=== PATIENT | male | born 1945 | race Caucasian/White ===

== ENCOUNTER 2018-08-06 20:02 | Inpatient (IN) | payer MEDICARE, MEDICAID ==
[2018-08-06 22:59] LABS: D-Dimer Test 0.69 *mcg/mL (0.27-0.43)
[2018-08-06 23:01] LABS: #Basophils 0.1 thou/uL (0.0-0.2); #Eosinphils 0.6 thou/uL (0.0-0.7); #Monocytes 1.1 thou/uL (0.11-0.59); %Basophils 0.6 % (0.0-1.0); %Eosinophils 6.2 % (0.0-10.0); %Lymphocytes 20.6 % (21.0-51.0); %Monocytes 11.1 % (0.0-10.0); %Neutrophils 61.5 % (42.0-75.0); Hemoglobin 13.8 g/dL (14.0-18.0); Mean Corpuscular HGB CONC 34.4 g/dL (32.0-36.0); Mean Corpuscular Hemoglobin 31.4 pg (27.0-31.0); Mean Corpuscular Volume 91.3 fL (78.0-98.0); Mean Platelet Volume 8.1 fL (7.4-10.4); Platelet Count 224 thou/uL (130-400); Red Blood Cell (RBC) Count 4.39 mill/uL (4.70-6.10); White Blood Cell (WBC) Count 9.7 thou/uL (4.8-10.8)
[2018-08-06 23:09] LABS: ALT (SGPT) 11 U/L (8-55); AST (SGOT) 13 U/L (5-34); Alkaline Phosphatase 65 U/L (40-150); Anion Gap 14 mmol/L (10-20); BUN (Urea Nitrogen) 26 mg/dL (8.4-25.7); Bilirubin, Total 0.6 mg/dL (0.2-1.2); Calc. Creatinine Clearance 0 mL/min (70-130); Calcium 9.5 mg/dL (7.8-10.44); Carbon Dioxide 26 mmol/L (23-31); Chloride 101 mmol/L (98-107); Estimated GFR-MDRD 52; Globulin 3.2 g/dL (2.4-3.5); Glucose 218 mg/dL (83-110); Potassium 4.4 mmol/L (3.5-5.1); Protein, Total 7.2 g/dL (5.8-8.1); Sodium 137 mmol/L (136-145)
[2018-08-06 23:35] LABS: CKMB 2.4 ng/mL (0-6.6)
--- NOTE | 2018-08-06 23:51 | ULT ---
RIGHT LOWER EXTREMITY VENOUS ULTRASOUND WITH DOPPLER 08/06/18 HISTORY: Right leg pain. Swelling. Edema. COMPARISON: None. TECHNIQUE: Olguin scale, color flow, doppler imaging with spectral waveform analysis performed of the right lower extremity venous system. FINDINGS: Examination is limited by body habitus. There is compressibility, presence of flow and augmentation i n the common femoral vein, femoral vein, popliteal vein. There is flow in the posterior tibial vein. There appears to be flow in the profunda femoral vein and greater saphenous vein. Possible occlusion of the mid and distal superficial femoral artery. IMPRESSION: 1. No evidence of thrombus in the right lower extremity deep venous system. 2. Possible occlusion in the mid to distal right superficial femoral artery. POS: [facility]
[2018-08-07] MEDS ORDERED: Guaifenesin DM 100-10/5 ML UDCUP PO PRN (00:57)
[2018-08-07] MEDS ORDERED: Ondansetron PF 4 MG/2 ML Vial IVP PRN (00:57)
[2018-08-07] MEDS ORDERED: Calcium Carbonate 500 MG ChewTAB PO PRN (00:57)
[2018-08-07] MEDS ORDERED: Ondansetron ODT 4 MG TAB PO PRN (00:57)
[2018-08-07] MEDS ORDERED: Bisacodyl 5 MG TAB PO PRN (00:57)
[2018-08-07] MEDS ORDERED: Senokot S 8.6-50 MG TAB PO PRN (00:57)
[2018-08-07] MEDS ORDERED: Acetaminophen 650 MG Suppository PR PRN (00:57)
[2018-08-07] MEDS ORDERED: Acetaminophen 325 MG TAB PO PRN (00:57)
[2018-08-07 02:03] VITALS: BMI 35.6
[2018-08-07 02:10] LABS: #Basophils 0.1 thou/uL (0.0-0.2); #Eosinphils 0.5 thou/uL (0.0-0.7); #Monocytes 1.1 thou/uL (0.11-0.59); #Neutrophils 5.9 thou/uL (1.40-6.50); %Basophils 0.9 % (0.0-1.0); %Lymphocytes 21.4 % (21.0-51.0); %Monocytes 11.1 % (0.0-10.0); %Neutrophils 61.7 % (42.0-75.0); Hemoglobin 13.7 g/dL (14.0-18.0); Mean Corpuscular HGB CONC 33.7 g/dL (32.0-36.0); Mean Corpuscular Volume 91.9 fL (78.0-98.0); Platelet Count 220 thou/uL (130-400); RBC Distribution Width 12.1 % (11.5-14.5); Red Blood Cell (RBC) Count 4.43 mill/uL (4.70-6.10); White Blood Cell (WBC) Count 9.5 thou/uL (4.8-10.8)
[2018-08-07 02:20] LABS: Troponin I 0.114 ng/mL (< 0.028)
[2018-08-07 02:40] LABS: Anion Gap 15 mmol/L (10-20); BUN (Urea Nitrogen) 25 mg/dL (8.4-25.7); BUN/Creatinine Ratio 18.25; Calc. Creatinine Clearance 83 mL/min (70-130); Calcium 9.7 mg/dL (7.8-10.44); Carbon Dioxide 27 mmol/L (23-31); Chloride 101 mmol/L (98-107); Estimated GFR-MDRD 51; Glucose 238 mg/dL (83-110); Phosphorus 3.2 mg/dL (2.3-4.7); Potassium 4.8 mmol/L (3.5-5.1); Sodium 138 mmol/L (136-145)
[2018-08-07 02:46] LABS: Troponin I 0.119 ng/mL (< 0.028)
[2018-08-07] MEDS ORDERED: Insulin Regular 300 UNITS/3 ML VIAL SC PRN (06:37)
[2018-08-07] MEDS ORDERED: Dextrose 50% Abboject 50 ML SYRINGE SLOW IVP PRN (06:37)
[2018-08-07] MEDS ORDERED: HumaLOG 300 UNITS/3 ML VIAL SC PRN ×4 (06:37→06:54)
[2018-08-07] MEDS ORDERED: Dextrose 5% in Water 1,000 ML IV PRN (06:37)
--- NOTE | 2018-08-07 07:52 | HP ---
CHIEF COMPLAINT: Lower extremity edema. HISTORY OF PRESENT ILLNESS: This is a 73-year-old male with past medical history significant for coronary artery disease, hyperlipidemia, hypertension, CVA in the past, diabetes mellitus type 2, presenting to our ED with shortness of breath and bilateral lower extremity edema. Per the patient, he has noted that he has been getting worsening lower extremity edema and the right leg is more swollen more than the left leg. The patient then became concerned, so the patient went to [facility] for evaluation and patient was transferred from [facility] to our ED, so that he can further be evaluated by getting Dopplers to rule out DVT. At this point, upon further questioning, the patient states that he has severe shortness of breath when he bends down from his wheelchair to grab things from the floor. The patient states that this shortness of breath has also been getting worse and everything has been going downhill from the past one month. Per the patient, he normally sits in his wheelchair and he does everything from his wheelchair. At this point, the patient endorses shortness of breath, bilateral lower extremity swelling; however, denies any cough, fever, chills, headaches, dizziness, chest pain, palpitations, abdominal pain, hematuria, dysuria. Of note, the patient was recently admitted to our hospital on October 24, 2017, and the patient was admitted and worked up for physical deconditioning, gait instability, peripheral vascular disease, and the patient was also found to have CVA with residual deficits during that time. REVIEW OF SYSTEMS: Positive for shortness of breath, bilateral lower extremity edema PAST MEDICAL HISTORY: Hypertension, hyperlipidemia, diabetes mellitus type 2, CVA in the past, coronary artery disease, peripheral vascular disease. FAMILY HISTORY: Reviewed and noncontributory to this visit PAST SURGICAL HISTORY: The patient has carotid endarterectomy in the past. PSYCHIATRIC HISTORY: The patient is schizophrenic. SOCIAL HISTORY: The patient is a former tobacco smoker. The patient smoked since he was in his 20s. Currently, the patient lives in a long-term facility [facility]. ALLERGIES: NO KNOWN DRUG ALLERGIES. CURRENT MEDICATIONS: The patient take; 1. Aspirin. 2. Niacin. 3. Carvedilol 6.25. 4. Clopidogrel 75 mg. 5. Vitamin B12 1000 mcg. 6. Citalopram 20 mg. 7. Glipizide 10 mg. 8. Spironolactone 25 mg. 9. Fish oil 1000 mg daily. PHYSICAL EXAMINATION: VITAL SIGNS: The patient's blood pressure is 157/81, pulse of 75, respiratory rate of 19, O2 saturation of 93% on room air. GENERAL: The patient is currently lying on his left side, sleeping comfortably, does not appear to have any acute distress. The patient is speaking in full sentences. HEENT: Normocephalic and atraumatic. Pupils are equal, round, and reactive to light. Extraocular movements are intact. No scleral icterus. Mucous membranes are moist. NECK: Full range of motion. Trachea is midline. Mild JVD appreciated. Supple. Nontender. LUNGS: The patient has mild crackles at the lower bases bilaterally. CARDIAC: Positive S1 and S2. Regular rate and rhythm. No murmurs, no gallops, no rubs appreciated. GI: The patient has positive bowel sounds, nontender, nondistended, soft. EXTREMITIES: The patient has 5/5 upper extremity strength. Good pulses bilaterally of the upper extremities. In the lower extremities, the patient has 2+ pitting edema. Right lower extremity is more edematous compared to the left. The patient has decreased pulses at the right dorsalis pedis compared to the left and there is no erythema or warmth. No sign of cellulitis appreciated at this time. NEUROLOGIC: Cranial nerves 2 through 12 grossly intact. No neurologic deficits noted. SKIN: Warm, dry, and intact. PSYCHIATRIC: Alert and oriented x3, not in acute distress. LABORATORY DATA: WBC is 9.7, hemoglobin is 13.8, hematocrit is 40.1, platelet count is 224. PT is 13.0, INR is 1.0. D-dimer is 0.69. Sodium is 137, potassium is 4.4, chloride is 101, carbon dioxide of 26, anion gap of 14, BUN is 26, creatinine is 1.33, glucose is 218. Troponin is 0.114. BNP is 336.9. IMAGING DATA: Chest x-ray shows bilateral vascular congestion that can be appreciated. ASSESSMENT AND PLAN: This is a 73-year-old male being admitted for: 1. Shortness of breath, likely due to new onset congestive heart failure. At this point, we have ordered an echo. We have consulted Cardiology. We will start the patient and continue the patient on his home medications. We will follow up with Cardiology's recommendations. We will follow up on morning labs. We will diurese the patient with Lasix. The patient takes spironolactone. We will also continue spironolactone. 2. Coronary artery disease. We will continue the patient on home medications. 3. Diabetes mellitus type 2, uncontrolled. At this time, we will start the patient on insulin sliding scale. We are going to continue the patient on his home medication. 4. Hypertension. We will monitor the patient's blood pressure closely and we will continue the patient on his home blood pressure medications and also we will add p.r.n. blood pressure medications to control the patient's blood pressures. 5. Bilateral lower extremity edema, likely due to congestive heart failure versus peripheral vascular disease. The patient does have history of peripheral vascular disease and currently DVT has been ruled out. Vascular ultrasound was done, which showed no evidence of thrombus in the right lower extremity. There is a possible occlusion in the mid to distal superficial femoral artery. 6. History of schizophrenia. At this point, the patient is stable. We will continue the patient on his current management. 7. History of cerebrovascular accident. At this point, we will continue the patient on current management. The patient is in a wheelchair and he is wheelchair bound. 8. Aortic stenosis. Cardiology has been consulted. We will follow up with their recommendation. At this point, the patient does not have any active history of syncope or dizziness. 9. Deep venous thrombosis and gastrointestinal prophylaxis. Job ID: [id number]
[2018-08-07] MEDS: Fish Oil 1,000 MG CAP PO SCH (09:42)
[2018-08-07] MEDS: Citalopram 20 MG TAB PO SCH (09:42)
[2018-08-07] MEDS: Famotidine 20 MG TAB PO SCH ×2 (09:42→20:34)
[2018-08-07] MEDS: Carvedilol 6.25 MG TAB PO SCH ×2 (09:42→20:34)
[2018-08-07] MEDS: Clopidogrel Bisulfate 75 MG TAB PO SCH (09:42)
[2018-08-07] MEDS: Spironolactone 25 MG TAB PO SCH ×2 (09:42→15:56)
[2018-08-07] MEDS: Famotidine/PF 20 mg/2ml Vial SLOW IVP SCH ×2 (09:43→20:34)
[2018-08-07] MEDS: Enoxaparin Sodium 30 MG/0.3 ML SYRINGE SC SCH (09:43)
--- NOTE | 2018-08-07 11:54 | RAD ---
CHEST 1 VIEW: HISTORY: Dyspnea. COMPARISON: 10/28/2017. FINDINGS: Cardiac silhouette is magnified by projection. Pulmonary vasculature upper limits of normal and acce ntuated by shallow inspiration. Mediastinum is midline with aortic calcification. No lobar consolid ation or evidence of pneumothorax. Postoperative changes right neck. IMPRESSION: 1. Atherosclerosis. 2. No active cardiopulmonary abnormalities are otherwise demonstrated. POS: [facility]
--- NOTE | 2018-08-07 15:12 | CON ---
DATE OF CONSULTATION: REASON FOR CONSULTATION: Lower extremity edema. HISTORY OF PRESENT ILLNESS: Mr. Lewis is a 73-year-old gentleman, who is a patient of Dr. Mendez in [facility]. He re-presented with weakness. He states he had mild shortness of breath. No chest pain, pressure, syncope, or presyncope. It was difficult to try and obtain true symptoms for Mr. Lewis. He was vague in his history. He states he was sent over by the long-term staff due to the above. He states his weakness is his main complaint and has been noted over the last 2 years. He has been wheelchair bound since that time period. He has had lower extremity edema. The duration of the lower extremity edema is unknown. The etiology is also unknown. PAST MEDICAL HISTORY: Hyperlipidemia, hypertension, diabetes mellitus, CVA, PVD, and schizophrenia. PAST SURGICAL HISTORY: Carotid endarterectomy. SOCIAL HISTORY: Previous tobacco use. CURRENT MEDICATIONS: Include; 1. Niacin. 2. Carvedilol. 3. Aspirin. 4. Clopidogrel. 5. Vitamin B12. 6. Citalopram. 7. Glipizide. 8. Spironolactone. 9. Fish oil. REVIEW OF SYSTEMS: A 10-point review of systems is reviewed and as above, otherwise negative. PHYSICAL EXAMINATION: VITAL SIGNS: Blood pressure 148/71, pulse 68, and temperature 98.5. GENERAL: Patient is a pleasant male who is in no acute distress. The patient appears their stated age. NEUROLOGIC: The patient is alert and oriented x3 with no focal neurologic deficits. HEENT: Sclerae without icterus. Mouth has moist mucous membranes with normal pallor. NECK: No JVD. Carotid upstroke brisk. No bruits bilaterally. LUNGS: Clear to auscultation with unlabored respirations. BACK: No scoliosis or kyphosis. CARDIAC: A 2/6 systolic ejection murmur heard best in the right upper sternal border. Regular rate and rhythm with normal S1 and S2. No S3 or S4 noted. No significant rubs, thrills, or gallops noted throughout the precordium. PMI is not displaced. There is no parasternal heave. ABDOMEN: Soft, nontender, nondistended. No peritoneal signs present. No hepatosplenomegaly. No abnormal striae. EXTREMITIES: 2+ pitting edema. 2+ femoral and 2+ dorsalis pedis pulses. No cyanosis or clubbing. SKIN: No gross abnormalities. PERTINENT LABS: Hemoglobin 13.7 and hematocrit 40.7. D-dimer 0.69. Creatinine 1.37 with a GFR of 51 and glucose 238. Peak troponin 0.1 and BNP of 336. Vascular ultrasound suggesting no thrombus in the right lower extremity with a possible occlusion of mid distal SFA. IMPRESSION: 1. Lower extremity edema. 2. Weakness. 3. Murmur. RECOMMENDATIONS: Mr. Lewis's echo did suggest left ventricular ejection fraction 50% to 55% with moderate left ventricular hypertrophy present. He did have diastolic dysfunction present. Contributing factors to his lower extremity edema are likely multifactorial. He does have moderate aortic stenosis in addition to left ventricular hypertrophy and diastolic dysfunction. He likely also has a component of obstructive sleep apnea. His right ventricular systolic pressure is mildly elevated. Recommendation at this point would include diuretic therapy to improve his lower extremity edema. There is no correlation between severe PVD and edema. This is likely asymptomatic. He has no current complaints to the area. Would diurese and continue with outpatient workup. The patient has no current symptoms suggesting angina. Job ID: [id number]
[2018-08-07] MEDS: Furosemide 40 MG/4 ML VIAL SLOW IVP SCH (15:56)
[2018-08-08] MEDS: Furosemide 40 MG/4 ML VIAL SLOW IVP SCH ×2 (06:39→15:35)
[2018-08-08] MEDS: Spironolactone 25 MG TAB PO SCH ×2 (08:57→17:47)
[2018-08-08] MEDS: Famotidine 20 MG TAB PO SCH ×2 (08:57→20:12)
[2018-08-08] MEDS: Fish Oil 1,000 MG CAP PO SCH (08:57)
[2018-08-08] MEDS: Carvedilol 6.25 MG TAB PO SCH ×2 (08:57→20:12)
[2018-08-08] MEDS: Citalopram 20 MG TAB PO SCH (08:57)
[2018-08-08] MEDS: Clopidogrel Bisulfate 75 MG TAB PO SCH (08:57)
[2018-08-08] MEDS: Enoxaparin Sodium 30 MG/0.3 ML SYRINGE SC SCH (08:58)
[2018-08-08] MEDS: Famotidine/PF 20 mg/2ml Vial SLOW IVP SCH ×2 (08:58→20:13)
--- NOTE | 2018-08-08 10:46 | PDOC.PN ---
- Subjective Encounter Start Date: 08/08/18 Encounter Start Time: 10:10 Subjective: f/u for LE edema on current Lasix. Weight down approx 5lbs since admit. -: No SOB, fever, cough. Feels weak and c/o general weakness. - Objective Resuscitation Status - Order Detail: 08/07/18 06:32 Resuscitation Status Routine Resuscitation Status: FULL: Full Resuscitation MAR Reviewed: Yes Vital Signs & Weight: Vital Signs (12 hours) Temp Pulse Resp BP Pulse Ox 08/08/18 07:06 97.6 F 73 20 149/84 H 94 L 08/08/18 03:50 97.5 F L 69 20 144/71 H 95 Weight Weight 270 lb 6.4 oz I&O: 08/07/18 08/08/18 08/09/18 06:59 06:59 06:59 Intake Total 0 934 Output Total 700 2850 Balance -737 -7967 Result Diagrams: 08/07/18 01:58 08/07/18 01:58 Additional Labs: Accuchecks 08/08/18 08/07/18 08/07/18 03:54 20:32 16:46 POC Glucose 201 H 228 H 214 H Laboratory Tests 10/27/17 11/03/17 08/06/18 05:00 18:30 19:43 Creatinine B-Natriuretic Peptide 251.7 H 167.0 H 336.9 H TSH 3rd Generation 08/06/18 08/08/18 22:32 08:20 Creatinine 1.33 H B-Natriuretic Peptide TSH 3rd Generation 1.9237 Radiology Reviewed by me: Yes (2D echo - EF 50-55%, mod LAE, mod MR) EKG Reviewed by me: Yes (Tele - SR) Phys Exam - Physical Examination Constitutional: NAD talkative, alert HEENT: PERRLA, sclera anicteric, oral pharynx no lesions Neck: no nodes, no JVD, supple, full ROM Respiratory: no wheezing, no rales, no rhonchi, clear to auscultation bilateral I/ CHAITANYA in RUSB, S1, S2 Cardiovascular: RRR, no rub, gallop Gastrointestinal: soft, non-tender, no distention, positive bowel sounds Musculoskeletal: pulses present, edema present Neurological: normal sensation, moves all 4 limbs Psychiatric: A&O x 3 Skin: normal turgor, cap refill <2 seconds Dx/Plan (1) Acute on chronic diastolic CHF (congestive heart failure) Code(s): I50.33 - ACUTE ON CHRONIC DIASTOLIC (CONGESTIVE) HEART FAILURE Status : Acute Comment: EF 50-55%, continue Lasix 40mg IV BID, serial monitoring (2) Physical deconditioning Code(s): R53.81 - OTHER MALAISE Status: Chronic Comment: PT for functional assessment (3) CKD (chronic kidney disease), stage II Code(s): N18.2 - CHRONIC KIDNEY DISEASE, STAGE 2 (MILD) Status: Chronic Comment: Avoid nephrotoxic agents and limit contrast exposure (4) Peripheral vascular disease Code(s): I73.9 - PERIPHERAL VASCULAR DISEASE, UNSPECIFIED Status: Chronic Comment: Continue ASA/Plavix - Plan 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
--- NOTE | 2018-08-08 12:04 | PDOC.CTH ---
Cardiology Progress Note - Subjective No overnight events. Good diuresis. - Objective Vital Signs Temp Pulse Resp BP Pulse Ox 08/08/18 11:28 97.5 F L 67 16 120/70 92 L 08/08/18 07:06 97.6 F 73 20 149/84 H 94 L 08/08/18 03:50 97.5 F L 69 20 144/71 H 95 Weight 270 lb 6.4 oz 08/07/18 08/08/18 08/09/18 06:59 06:59 06:59 Intake Total 0 934 Output Total 700 2850 Balance -700 -1020 - Physical Examination General/Neuro: other: (alert and awake) Neck: no JVD present Lungs: unlabored respirations Heart: RRR Abdomen: NT/ND - Telemetry Telemetry Rhythm: SR - Labs Result Diagrams: 08/07/18 01:58 08/07/18 01:58 Troponin/CKMB CK-MB (CK-2) 2.4 ng/mL (0-6.6) 08/06/18 19:43 Troponin I 0.119 ng/mL (< 0.028) H 08/07/18 01:58 - Assessment/Plan 1. Acute on chronic diastolic CHF 2. Mild pulmonary HTN 3. LVH 4. HTN 5. DM-II Continue diuresis and transition to po. Hopefully home soon. Pt seen and examined. Continue with diuresis. Home in 1-2 days
[2018-08-09] MEDS: Furosemide 40 MG/4 ML VIAL SLOW IVP SCH ×2 (05:31→14:25)
[2018-08-09 05:41] LABS: Anion Gap 13 mmol/L (10-20); BUN (Urea Nitrogen) 31 mg/dL (8.4-25.7); Calc. Creatinine Clearance 74 mL/min (70-130); Calcium 9.3 mg/dL (7.8-10.44); Carbon Dioxide 27 mmol/L (23-31); Chloride 100 mmol/L (98-107); Estimated GFR-MDRD 46; Glucose 215 mg/dL (83-110); Potassium 4.1 mmol/L (3.5-5.1); Sodium 136 mmol/L (136-145)
[2018-08-09] MEDS: Clopidogrel Bisulfate 75 MG TAB PO SCH (09:11)
[2018-08-09] MEDS: Carvedilol 6.25 MG TAB PO SCH ×2 (09:11→22:24)
[2018-08-09] MEDS: Fish Oil 1,000 MG CAP PO SCH (09:11)
[2018-08-09] MEDS: Citalopram 20 MG TAB PO SCH (09:11)
[2018-08-09] MEDS: Famotidine 20 MG TAB PO SCH ×2 (09:11→22:24)
[2018-08-09] MEDS: Spironolactone 25 MG TAB PO SCH ×2 (09:11→17:03)
[2018-08-09] MEDS: Enoxaparin Sodium 30 MG/0.3 ML SYRINGE SC SCH (09:11)
[2018-08-09] MEDS: Famotidine/PF 20 mg/2ml Vial SLOW IVP SCH (09:12)
[2018-08-09] MEDS: Insulin Regular 300 UNITS/3 ML VIAL SC PRN ×2 (11:35→17:28)
--- NOTE | 2018-08-09 17:27 | PDOC.PN ---
- Subjective Encounter Start Date: 08/09/18 Encounter Start Time: 17:25 Subjective: f/u for LE edema on IV Lasix. Weight down 7lbs since admit. Feels ok -: overall. - Objective Resuscitation Status - Order Detail: 08/07/18 06:32 Resuscitation Status Routine Resuscitation Status: FULL: Full Resuscitation MAR Reviewed: Yes Vital Signs & Weight: Vital Signs (12 hours) Temp Pulse Pulse Pulse Resp BP BP 08/09/18 16:38 97.6 F 82 19 08/09/18 15:33 97.5 F L 75 20 08/09/18 12:42 74 87 140/65 165/87 H 08/09/18 11:20 97.4 F L 82 20 08/09/18 07:36 97.3 F L 74 16 BP BP BP Pulse Ox Pulse Ox Pulse Ox 08/09/18 16:38 108/69 96 08/09/18 15:33 138/87 94 L 08/09/18 12:42 93 L 93 L 08/09/18 11:20 142/91 H 93 L 08/09/18 07:36 146/84 H 95 Weight Weight 270 lb 4.8 oz I&O: 08/08/18 08/09/18 08/10/18 06:59 06:59 06:59 Intake Total 934 1114 400 Output Total 9062 2575 685 [facility] -1916 -1461 -285 Result Diagrams: 08/07/18 01:58 08/09/18 05:10 Additional Labs: Accuchecks 08/09/18 08/09/18 08/09/18 16:55 11:23 05:31 POC Glucose 200 H 192 H 204 H 08/08/18 08/08/18 20:18 17:45 POC Glucose 241 H 190 H Laboratory Tests 10/27/17 11/03/17 08/06/18 05:00 18:30 19:43 Creatinine B-Natriuretic Peptide 251.7 H 167.0 H 336.9 H TSH 3rd Generation 08/06/18 08/07/18 08/08/18 22:32 01:58 08:20 Creatinine 1.33 H 1.37 H B-Natriuretic Peptide TSH 3rd Generation 1.9237 EKG Reviewed by me: Yes (Tele - SR) Phys Exam - Physical Examination Constitutional: NAD HEENT: PERRLA, sclera anicteric, oral pharynx no lesions Neck: no nodes, no JVD, supple, full ROM Respiratory: no wheezing, no rales, no rhonchi, clear to auscultation bilateral S1, S2 Cardiovascular: RRR, no significant murmur, no rub, gallop Gastrointestinal: soft, non-tender, no distention, positive bowel sounds mild LE edema Musculoskeletal: pulses present Neurological: normal sensation, moves all 4 limbs Psychiatric: A&O x 3 Skin: normal turgor, cap refill <2 seconds Dx/Plan (1) Acute on chronic diastolic CHF (congestive heart failure) Code(s): I50.33 - ACUTE ON CHRONIC DIASTOLIC (CONGESTIVE) HEART FAILURE Status : Acute Comment: EF 50-55%, continue Lasix 40mg IV BID another 24h then convert to po, serial monitoring (2) Physical deconditioning Code(s): R53.81 - OTHER MALAISE Status: Chronic Comment: PT for functional assessment (3) CKD (chronic kidney disease), stage II Code(s): N18.2 - CHRONIC KIDNEY DISEASE, STAGE 2 (MILD) Status: Chronic Comment: Avoid nephrotoxic agents and limit contrast exposure (4) Peripheral vascular disease Code(s): I73.9 - PERIPHERAL VASCULAR DISEASE, UNSPECIFIED Status: Chronic Comment: Continue ASA/Plavix - Plan plan discussed w/ family, PT/OT, [employer]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
--- NOTE | 2018-08-09 21:53 | PDOC.CTH ---
Cardiology Progress Note - Subjective Breathing better. Still with LE edema. - Objective Vital Signs Temp Pulse Pulse Pulse Resp BP BP 08/09/18 16:38 97.6 F 82 19 08/09/18 15:33 97.5 F L 75 20 08/09/18 12:42 74 87 140/65 165/87 H 08/09/18 11:20 97.4 F L 82 20 08/09/18 10:37 82 77 142/91 H 130/74 BP BP BP Pulse Ox Pulse Ox Pulse Ox 08/09/18 16:38 108/69 96 08/09/18 15:33 138/87 94 L 08/09/18 12:42 93 L 93 L 08/09/18 11:20 142/91 H 93 L 08/09/18 10:37 95 94 L Weight 270 lb 4.8 oz 08/08/18 08/09/18 08/10/18 06:59 06:59 06:59 Intake Total 934 1114 400 Output Total 2149 5619 545 Balance -3245 -7750 -285 - Physical Examination General/Neuro: alert & oriented x3, NAD Neck: no JVD present Lungs: CTA, unlabored respirations Heart: RRR Abdomen: NT/ND Extremities: + edema B (2+) - Telemetry Telemetry Rhythm: NSR - Labs Result Diagrams: 08/07/18 01:58 08/09/18 05:10 Troponin/CKMB CK-MB (CK-2) 2.4 ng/mL (0-6.6) 08/06/18 19:43 Troponin I 0.119 ng/mL (< 0.028) H 08/07/18 01:58 - Assessment/Plan 1. Acute on chronic diastolic CHF 2. Mild pulmonary HTN 3. LVH 4. HTN 5. DM-II PLAN: - Change lasix to PO. - Home tomorrow if stable.
[2018-08-10 05:57] LABS: Anion Gap 14 mmol/L (10-20); BUN (Urea Nitrogen) 39 mg/dL (8.4-25.7); Calc. Creatinine Clearance 69 mL/min (70-130); Calcium 9.3 mg/dL (7.8-10.44); Carbon Dioxide 28 mmol/L (23-31); Chloride 98 mmol/L (98-107); Estimated GFR-MDRD 43; Glucose 242 mg/dL (83-110); Potassium 3.9 mmol/L (3.5-5.1); Sodium 136 mmol/L (136-145)
[2018-08-10] MEDS ORDERED: Furosemide 40 MG TAB PO SCH (07:30)
[2018-08-10] MEDS: Clopidogrel Bisulfate 75 MG TAB PO SCH (08:17)
[2018-08-10] MEDS: Citalopram 20 MG TAB PO SCH (08:17)
[2018-08-10] MEDS: Fish Oil 1,000 MG CAP PO SCH (08:17)
[2018-08-10] MEDS: Spironolactone 25 MG TAB PO SCH (08:18)
[2018-08-10] MEDS: Famotidine 20 MG TAB PO SCH (08:18)
[2018-08-10] MEDS: Carvedilol 6.25 MG TAB PO SCH (08:18)
[2018-08-10] MEDS: Enoxaparin Sodium 30 MG/0.3 ML SYRINGE SC SCH (08:19)
[2018-08-10] MEDS: Insulin Regular 300 UNITS/3 ML VIAL SC PRN (08:19)
[2018-08-10 11:35] VITALS: TEMP 97.8
--- NOTE | 2018-08-10 14:07 | DIS ---
DATE OF ADMISSION: 08/08/2018 DATE OF DISCHARGE: 08/10/2018 DISCHARGE DIAGNOSES: 1. [id number] diastolic congestive heart failure with ejection fraction of 50% to 55%. 2. Physical deconditioning, multifactorial. 3. Chronic kidney disease stage 2, stable. 4. Peripheral vascular disease, chronic. CONSULTATIONS: Dr. Boyce and Dr. Gibbons with Cardiology Service. PERTINENT LABORATORY DATA AND X-RAY FINDINGS: Creatinine ranged between 1.33 to 1.57. Estimated GFR ranged between 43 to 52. BNP 337, previously 167, 11/03/2017. TSH 1.92. Right lower extremity venous Doppler study dated 08/06/2018, showed no evidence of thrombus in the right lower extremity deep venous system. Stenosis noted in the mid to distal right superficial femoral artery. Portable chest x-ray dated 08/06/2018, showed no acute cardiopulmonary process. 2D transthoracic echocardiogram dated 08/07/2018 showed ejection fraction of 50% to 55%. Hypokinesis of the inferior wall. Left atrial enlargement. Moderate mitral regurgitation. Moderate aortic stenosis. HOSPITAL COURSE: The patient was initially admitted to the telemetry unit after presenting with increasing lower extremity edema with evidence of [id number] diastolic heart failure. The patient underwent 2D transthoracic echocardiogram showing preserved ejection fraction of 50% to 55% with diastolic component. The patient was placed on IV Lasix with approximately 10- to 11-pound weight loss during the hospital course. The patient's overall respiratory status improved with diuresis and the patient was able to ambulate with less restriction using a rolling walker after decreasing his lower extremity edema. The patient was evaluated by the Cardiology Service with recommendations for diuretic therapy and general medical management. Telemetry monitoring showed a sinus mechanism without evidence of acute arrhythmia or dysrhythmia and patient remained clinically stable throughout the hospital course. I have examined the patient at the time of discharge and discussed followup instructions. The patient verbalizes understanding and in agreement. Due to the patient's overall deconditioned status and comorbid conditions, the patient was deemed appropriate candidate for home health services after discharge. DISCHARGE MEDICATIONS: 1. Enteric-coated aspirin 81 mg p.o. daily. 2. Coreg 6.25 mg p.o. b.i.d. 3. Citalopram 20 mg p.o. daily. 4. Plavix 75 mg p.o. daily. 5. Vitamin B12 1000 mcg p.o. daily. 6. Niacin extended release 1000 mg p.o. nightly. 7. [place]-3 fatty acids 1000 mg p.o. daily. 8. Spironolactone 25 mg p.o. b.i.d. 9. Lasix 40 mg p.o. daily. 10. Glucotrol 10 mg p.o. daily. FOLLOWUP: The patient may follow up with his primary care provider, Dr. Gay after discharge. CONDITION ON DISCHARGE: Fair. ACTIVITY: Ad-love. DIET: Heart healthy. CODE STATUS: Full. DISPOSITION: Discharged to [facility] with Home Health Services, 08/10/2018. Total time preparing and coordinating discharge, 34 minutes. Job ID: [id number]
[2018-08-10 16:42] VITALS: BP 125/81
== END 2018-08-10 16:37 | disposition home health service (06) | DRG 291 ==
LOC: ERS 20:02 → 2SW 08-07 00:29 → OBSVTOIN 08-08 10:47 → 2NO 08-09 16:37
PROVIDERS: ADMIT Internal Medicine; ATTEND Internal Medicine
DX: I13.0 Hypertensive heart and chronic kidney disease with heart failure and stage 1 through stage 4 chronic kidney disease, or unspecified chronic kidney disease (principal); I50.33 Acute on chronic diastolic (congestive) heart failure; E11.22 Type 2 diabetes mellitus with diabetic chronic kidney disease; E11.65 Type 2 diabetes mellitus with hyperglycemia; N18.2 Chronic kidney disease, stage 2 (mild); E11.51 Type 2 diabetes mellitus with diabetic peripheral angiopathy without gangrene; I27.20 Pulmonary hypertension, unspecified
CPT/HCPCS: 36415; 36416; 71045; 80048; 80053; 80069; 82553; 83880; 84443; 84484; 85025; 85379; 85610; 85730; 93005; 93306; 93798; G8978-GP-CM; G8979-GP-CK; J1650; J1815; J1940; S0028

== ENCOUNTER 2018-11-29 20:39 | Inpatient (IN) | payer MEDICARE, MEDICAID ==
[2018-11-29 22:07] LABS: CKMB 1.2 ng/mL (0-6.6)
[2018-11-30] MEDS ORDERED: Enoxaparin Sodium 30 MG/0.3 ML SYRINGE ONE (00:01)
[2018-11-30] MEDS ORDERED: Enoxaparin Sodium 100 MG/ML SYRINGE ONE (00:01)
[2018-11-30] MEDS ORDERED: Enoxaparin Sodium 120 MG/0.8 ML SYRINGE SC SCH (00:30)
[2018-11-30] MEDS ORDERED: Dextrose 50% Abboject 50 ML SYRINGE SLOW IVP PRN (02:24)
[2018-11-30] MEDS ORDERED: Dextrose 5% in Water 1,000 ML IV PRN (02:24)
[2018-11-30 02:41] LABS: Troponin I 0.087 ng/mL (< 0.028)
[2018-11-30] MEDS ORDERED: Cefepime 1 GM VIAL ONE (04:00)
[2018-11-30] MEDS: Cefepime 1 GM in Sodium Chloride 0.9% 100 ML IVPB SCH ×2 (04:09→17:09)
--- NOTE | 2018-11-30 04:09 | HP ---
CHIEF COMPLAINT: Transfer from [place] for respiratory infection and cough. HISTORY OF PRESENT ILLNESS: The patient is a 73-year-old male who initially presented to the [place] [facility] complaining of sore throat and generalized weakness. The patient also reported some cough. He reports to me now that he has had progressive weakness, especially over the last 3 days to the point that he is no longer able to get up and get on his feet and ambulate, whereas normally, he is capable of doing that. He reports cough that has been productive of discolored sputum. In the emergency department in [place], the patient appeared to have an injected pharynx with swelling and a negative chest x-ray, negative flu screen and a negative strep test; however, his white count was significantly elevated and he was febrile. He had an elevated BNP at 773 and a troponin of 0.07. White count was 17.7. The patient received a dose of IV Lasix along with vancomycin and cefepime for sepsis. He was initially transferred here after he was declined at [facility], which is where the patient had originally requested. Currently, the patient continues to have some difficulty speaking. REVIEW OF SYSTEMS: All of the systems were reviewed, all pertinent positives and negatives noted in the history of present illness. PAST MEDICAL HISTORY: Notable for: 1. Hypertension. 2. Hyperlipidemia. 3. Diabetes mellitus type 2. 4. History of CVA. 5. History of peripheral vascular disease. 6. Coronary artery disease. 7. Schizophrenia. PAST SURGICAL HISTORY: Carotid endarterectomy. FAMILY HISTORY: Nothing known that is contributory. SOCIAL HISTORY: The patient is a former smoker, but quit remotely. He lives in a long-term care facility in [place]. ALLERGIES: NONE. CURRENT MEDICATIONS: 1. Aspirin 81 mg daily. 2. Niacin 1000 mg daily. 3. Carvedilol 6.25 mg one p.o. b.i.d. 4. Clopidogrel 75 mg daily. 5. B12 1000 units daily. 6. Citalopram 20 mg daily. 7. Glipizide 10 mg daily. 8. Aldactone 25 mg b.i.d. 9. Fish oil 1000 mg p.o. daily. PHYSICAL EXAMINATION: VITAL SIGNS: BP 131/90, pulse 72, respirations 24, temperature 98.7, O2 saturation was 89% on room air. GENERAL APPEARANCE: Age-appropriate male. He is very somnolent being the middle of the night. He is easily awakened and will converse briefly, but then falls back to sleep, snoring very quickly. HEENT: FITZ, has no OP lesions. I do not appreciate a significant amount of pharyngeal erythema or engorgement. NECK: Supple and symmetric. HEART: His heart has a 2/6 high-pitched holosystolic murmur heard throughout the precordium and radiating into the abdomen. LUNGS: Diminished, but clear bilaterally with no significant wheezes or rales. ABDOMEN: Soft, nontender, and nondistended. Positive bowel sounds. No masses and no organomegaly. EXTREMITIES: No significant cyanosis, clubbing, or edema. SKIN: Warm and dry. LABORATORY DATA: White count 17.7, hemoglobin 12.8, and platelets 193. Sodium 137, potassium 4.1, chloride 99, CO2 is 26, BUN 25, creatinine 1.51, glucose 234, lactic acid 1.3, total bilirubin 1.4. LFTs normal. Troponin 0.07. BNP 772.7, albumin 3.9. Urinalysis shows glucose of 250, moderate blood, trace leukocyte esterase, 7-10 white cells, 3+ bacteria. Strep screen negative. Flu screen negative. Chest x-ray shows interstitial changes that were present in October, but appeared to be improved. EKG shows a first-degree AV block along with some nonspecific depression in inferolateral leads. IMPRESSION AND PLAN: 1. Sepsis. Source potentially the patient's pharyngitis, although it does not look all that bad to me at the moment. He also has some chronic interstitial changes on chest x-ray, which may warrant a followup CT scan and some modest evidence of urinary tract infection as well. The patient has received vancomycin and cefepime. We will continue those for now. 2. Possible evidence of congestive heart failure, primarily based upon elevated BNP. The patient did receive a dose of Lasix at the [place] [facility]. We will continue to follow up on that. He does have some hypoxia, which may be related to his chronic changes or some decompensated failure. He does have some moderate aortic stenosis along with some evidence of some diastolic dysfunction based on his previous echocardiogram from late July. 3. Chronic kidney disease stage 3. Currently, creatinine is about his baseline. 4. Elevated troponins. The patient appears to have some sepsis and hypoxia. This appears to be some demand ischemia consistent with a type 2 non-ST segment elevation myocardial infarction. We will continue the patient on telemetry and continue to monitor his enzymes. 5. Acute hypoxic respiratory failure. The patient sats at 89% on room air is requiring some supplemental oxygen here in the emergency department. Again, may need a followup CT chest to further elucidate the chronic changes that are apparent on a chest x-ray and the hypoxia. This appears to be more infectious in nature rather than a pulmonary embolus. 6. Diabetes mellitus. Continue with Accu-Cheks sliding scale and diabetic diet. 7. I am trying to have a conversation with the patient regarding his code status; however, given his degree of somnolence at the time my interview, I feel like it is best served to re-address this with him in the morning. Job ID: [id number]
[2018-11-30] MEDS ORDERED: Acetaminophen 325 MG TAB ONE ×2 (04:21→04:22)
[2018-11-30] MEDS: Acetaminophen 325 MG TAB PO PRN (04:24)
[2018-11-30 05:03] LABS: Troponin I 0.098 ng/mL (< 0.028)
[2018-11-30] MEDS ORDERED: HumaLOG 300 UNITS/3 ML VIAL ONE (07:15)
[2018-11-30] MEDS: HumaLOG 300 UNITS/3 ML VIAL SC PRN ×3 (07:17→17:20)
[2018-11-30] MEDS: Enoxaparin Sodium 40 MG/0.4 ML SYRINGE SC SCH (09:00)
[2018-11-30] MEDS ORDERED: Aspirin Chewable 81 MG TAB ONE (09:19)
[2018-11-30] MEDS ORDERED: Clopidogrel Bisulfate 75 MG TAB ONE (09:19)
[2018-11-30] MEDS: Vancomycin HCl 1 GM in Premix Bag 1 BAG IVPB SCH ×2 (09:29→19:48)
[2018-11-30] MEDS: Aspirin 81 mg Enteric Coated Tablet PO SCH (09:29)
[2018-11-30] MEDS: Clopidogrel Bisulfate 75 MG TAB PO SCH (09:29)
[2018-11-30] MEDS: Citalopram 20 MG TAB PO SCH (11:01)
[2018-11-30] MEDS: Carvedilol 6.25 MG TAB PO SCH ×2 (11:01→17:09)
[2018-11-30] MEDS: Spironolactone 25 MG TAB PO SCH ×2 (11:01→17:09)
[2018-11-30] MEDS: Niacin 500 MG TAB PO SCH (11:01)
[2018-11-30] MEDS: glipiZIDE 10 MG TAB PO SCH (11:01)
--- NOTE | 2018-11-30 19:11 | PDOC.PN ---
- Subjective Encounter Start Date: 11/30/18 Encounter Start Time: 17:40 Patient able to talk to me, does require some effort. States he generally feels weak. Unable to state if he is better/worse/same as in ED. Pain present in feet bilaterally, right>left, dorsal surface. Cough/congestion present. Incontinent of urine, he is unable to answer questions about dysuria. - Objective Resuscitation Status - Order Detail: 11/30/18 02:17 Resuscitation Status Routine Resuscitation Status: FULL: Full Resuscitation Vital Signs & Weight: Vital Signs (12 hours) Temp Pulse Resp BP BP Pulse Ox 11/30/18 17:09 129/63 11/30/18 16:53 98.4 F 89 18 129/63 98 11/30/18 14:12 96 11/30/18 13:50 98.3 F 67 18 110/56 L 96 Weight Weight 257 lb Additional Labs: Accuchecks 11/30/18 11/30/18 10:29 07:15 POC Glucose 260 H 270 H Phys Exam - Physical Examination Chronically ill appearing man No erythema posterior O/P, no LAD palpated Neck: supple some expiratory wheezes Cardiovascular: RRR RUSB murmur 2 plus Gastrointestinal: soft, non-tender, no distention Musculoskeletal: no edema Neurological: non-focal, moves all 4 limbs Psychiatric: A&O x 3 Skin: no rash Deviation from normal: Feet skin dry bilaterally, onychomycosis present, no cellulitis Dx/Plan (1) Sepsis secondary to UTI Code(s): A41.9 - SEPSIS, UNSPECIFIED ORGANISM; N39.0 - URINARY TRACT INFECTION, SITE NOT SPECIFIED Status: Acute (2) Aortic stenosis Code(s): I35.0 - NONRHEUMATIC AORTIC (VALVE) STENOSIS Status: Acute (3) HTN (hypertension) Code(s): I10 - ESSENTIAL (PRIMARY) HYPERTENSION Status: Acute (4) Diastolic dysfunction Code(s): I51.89 - OTHER ILL-DEFINED HEART DISEASES Status: Acute (5) Leukocytosis Code(s): D72.829 - ELEVATED WHITE BLOOD CELL COUNT, UNSPECIFIED Status: Acute - Plan * ID - empiric abx presently, f/u urine culture [place]. Overlay of respiratory illness as well, treat symptomatically and follow. * Check AML * Echo noted from prior admit * Pending response to therapy, may need more pulmonary diagnostics. At this point, clinical picture unclear. Start with repeat PA/Lat CXR in AM
[2018-12-01] MEDS ORDERED: Clopidogrel Bisulfate 75 MG TAB ONE (03:02)
[2018-12-01] MEDS: Cefepime 1 GM in Sodium Chloride 0.9% 100 ML IVPB SCH ×2 (03:39→17:23)
[2018-12-01 06:34] LABS: Actual Bicarbonate (HCO3a) 20.1 mEq/L (22-28); Base Excess (BEa) -5.8 mEq/L (-2.0 to +3.0); CO2 Tension 41.2 mmHg (35.0-45.0); Calcium, Ionized 1.26 mmol/L (1.12-1.30); Carboxyhemoglobin (COHb) 1.7 gm% (0.0-3.0); Hemoglobin (Hb) 13.4 g/dL (14.0-18.0); O2 Tension (PaO2) 69.5 mmHg (> 70.0); Potassium - ABG Lab 4.16 mmol/L (3.70-5.30); pH, Arterial 7.31 (7.35-7.45)
[2018-12-01 06:35] LABS: Puncture Site RRA
--- NOTE | 2018-12-01 06:47 | PDOC.EVN ---
Event Note - Event Note Event Note: Code green activated due to pt having some change in mental status, as per RN report, pt was arousal but seems to be confused, not in acute distress, vitals signs WNL, no fever, CT ordered will follow, could just be due to undelrying infection, ABG acceptable, will continue to watch him and follow work up. Discussed with hospitalist colleague for continuation of care in am.
[2018-12-01 06:56] LABS: Mean Corpuscular HGB CONC 31.9 g/dL (32.0-36.0); Mean Corpuscular Hemoglobin 30.3 pg (27.0-31.0); Mean Corpuscular Volume 94.9 fL (78.0-98.0); Mean Platelet Volume 8.8 fL (7.4-10.4); Platelet Count 231 thou/uL (130-400); RBC Distribution Width 11.7 % (11.5-14.5); White Blood Cell (WBC) Count 20.2 thou/uL (4.8-10.8)
[2018-12-01 07:24] LABS: Anion Gap 21 mmol/L (10-20); BUN (Urea Nitrogen) 41 mg/dL (8.4-25.7); Calc. Creatinine Clearance 59 mL/min (70-130); Calcium 10.1 mg/dL (7.8-10.44); Carbon Dioxide 20 mmol/L (23-31); Chloride 99 mmol/L (98-107); Estimated GFR-MDRD 38; Glucose 282 mg/dL (83-110); Potassium 4.1 mmol/L (3.5-5.1); Sodium 136 mmol/L (136-145)
--- NOTE | 2018-12-01 08:08 | CT ---
CT OF HEAD NONCONTRAST: INDICATION: Altered mental status. COMPARISON: 07/01/2016. FINDINGS: There is parenchymal volume loss with compensatory dilatation of the ventricular system. Mild chroni c ischemic disease is present. There is no intracranial hemorrhage, mass effect, or midline shift. IMPRESSION: No evidence of acute intracranial hemorrhage or mass effect. POS: [facility]
[2018-12-01 08:29] LABS: CKMB 16.3 ng/mL (0-6.6); Troponin I 1.088 ng/mL (< 0.028)
[2018-12-01 08:38] LABS: Band 15 % (5-11); Eosinophils 1 % (0-10); Lymphocytes 18 % (21-51); MDiff Complete? YES; Monocytes 6 % (0-10); Neutrophil 59 % (42-75); RBC Morphology Normal; Reactive Lymphocytes 1 % (0-10)
[2018-12-01] MEDS: Carvedilol 6.25 MG TAB PO SCH ×2 (09:00→17:23)
[2018-12-01] MEDS: Enoxaparin Sodium 40 MG/0.4 ML SYRINGE SC SCH (09:01)
[2018-12-01] MEDS: Niacin 500 MG TAB PO SCH (09:01)
[2018-12-01] MEDS: Aspirin 81 mg Enteric Coated Tablet PO SCH (09:01)
[2018-12-01] MEDS: Spironolactone 25 MG TAB PO SCH ×2 (09:01→17:23)
[2018-12-01] MEDS: Citalopram 20 MG TAB PO SCH (09:01)
[2018-12-01] MEDS: Clopidogrel Bisulfate 75 MG TAB PO SCH (09:01)
[2018-12-01] MEDS: glipiZIDE 10 MG TAB PO SCH (09:01)
--- NOTE | 2018-12-01 09:16 | RAD ---
TWO VIEW CHEST: Indications: Cough and respiratory symptoms, hospital follow up. Comparison: 11-29-18 FINDINGS: Hazy alveolar infiltrate in the right upper lung again noted. There is mild cardiomegaly. There is va scular congestion with interstitial prominence suggesting interstitial congestion. Small effusions ag ain noted. IMPRESSION: Evidence of vascular congestion with possible superimposed infiltrate in the right upper lung. Findin gs appear stable from yesterday. POS: [facility]
[2018-12-01] MEDS ORDERED: Vancomycin HCl 1.5 GM in Sodium Chloride 0.9% 250 ML 300 ML IVPB SCH (10:00)
[2018-12-01] MEDS: Vancomycin HCl 1 GM in Premix Bag 1 BAG IVPB SCH (10:16)
--- NOTE | 2018-12-01 11:48 | PDOC.PN ---
- Subjective Encounter Start Date: 12/01/18 Encounter Start Time: 08:30 Follow up sepsis. Patient seen early this morning, overnight events noted. Will awaken to stimulation, knows he is in hospital in [place], knows "November 2018 ". Denies pain presently. - Objective Resuscitation Status - Order Detail: 11/30/18 02:17 Resuscitation Status Routine Resuscitation Status: FULL: Full Resuscitation Vital Signs & Weight: Vital Signs (12 hours) Temp Pulse Pulse Resp Resp BP BP 12/01/18 08:00 97.2 F L 95 17 115/70 12/01/18 06:28 117 H 20 129/78 12/01/18 03:40 97.8 F 104 H 18 123/71 Pulse Ox Pulse Ox 12/01/18 08:00 99 12/01/18 06:28 95 12/01/18 03:40 95 Weight Weight 252 lb 6.4 oz I&O: 11/30/18 12/01/18 12/02/18 06:59 06:59 06:59 Intake Total 560 Output Total 200 Balance 360 Result Diagrams: 12/01/18 06:37 12/01/18 06:37 Additional Labs: Accuchecks 12/01/18 12/01/18 11/30/18 10:47 05:41 19:47 POC Glucose 303 H 235 H 161 H Phys Exam - Physical Examination Chronically ill appearing HEENT: PERRLA Neck: no nodes, no JVD scattered rales Cardiovascular: RRR Gastrointestinal: soft, non-tender Musculoskeletal: no edema Neurological: non-focal, moves all 4 limbs some mild residual dysphagia from prior CVAs Deviation from normal: oriented to person/place/month Skin: no rash Dx/Plan (1) Aortic stenosis Code(s): I35.0 - NONRHEUMATIC AORTIC (VALVE) STENOSIS Status: Acute (2) HTN (hypertension) Code(s): I10 - ESSENTIAL (PRIMARY) HYPERTENSION Status: Acute (3) Diastolic dysfunction Code(s): I51.89 - OTHER ILL-DEFINED HEART DISEASES Status: Acute (4) Leukocytosis Code(s): D72.829 - ELEVATED WHITE BLOOD CELL COUNT, UNSPECIFIED Status: Acute (5) Sepsis Code(s): A41.9 - SEPSIS, UNSPECIFIED ORGANISM Status: Acute - Plan * Called daughter Ave, reviewed history, she asked me to call brother Tony also, which I did. Met in person with Tony and patient's brother, family meeting approximately 30 minutes, information summarized below. I explained overnight events/workup/care plan in detail and answered their questions. * * Pulm - Repeat CXR reviewed, hazy infiltrate RUL, interstitial prominance present. With negative urine culture and blood cultures, suspect atypical pneumonia. Will stop vancomycin and use levaquin/cefepime for now. Lasix 40mg IV today. Tomorrow resume home Lasix 40 mg po bid. * Suspect underlying MOSHE, son also has suspected this, they are awaiting outpt sleep study. Start CPAP qhs/with naps. * * Cards- --> admitted SW early December, diastolic CHF, received heart cath Dr. Sierra, sustained embolic CVA, no stent placed--> recommended repeat cath, referral to AVR or TAVR. Patient to follow up Cardiology on this issue. I explained this is likely complicating fluid issues. * New cardiac biomarkers overnight ARE consistent with NSTEMI type 2 secondary to demand ischemia secondary to sepsis. * * ID - Throat/Blood/Urine negative so far. Abnormal UA on admit noted, however. Clinical picture c/w respiratory illness in patient that is already frail. AM CBC ordered, abx as above. Procalcitonin 0.14. * * DVT proph - Lovenox * * Functional status - wheelchair bound, since early November not able to independently transfer bed to chair. PT/OT, would need SNF at d/c (previously in October was in Assisted Living, more recently at SNF) * * Code status - Patient has expressed desire for DNR compatible care with family in the past. They recall those conversations, we agreed that functional outcome for him after a code would be dismal. Functional capacity already very limited. DNR order placed. Son needs formal POA papers, SW consult placed.
[2018-12-01] MEDS ORDERED: Furosemide 40 MG/4 ML VIAL SLOW IVP SCH (12:00)
[2018-12-01] MEDS: HumaLOG 300 UNITS/3 ML VIAL SC PRN (12:01)
--- NOTE | 2018-12-01 13:24 | PDOC.CTH ---
Cardiology Progress Note - Subjective No changes noted. - Objective Vital Signs Temp Pulse Pulse Resp Resp BP BP 12/01/18 08:00 97.2 F L 95 17 115/70 12/01/18 06:28 117 H 20 129/78 12/01/18 03:40 97.8 F 104 H 18 123/71 Pulse Ox Pulse Ox 12/01/18 08:00 99 12/01/18 06:28 95 12/01/18 03:40 95 Weight 252 lb 6.4 oz 11/30/18 12/01/18 12/02/18 06:59 06:59 06:59 Intake Total 560 Output Total 200 Balance 360 - Physical Examination General/Neuro: NAD Neck: no JVD present Lungs: unlabored respirations Heart: PMI normal, RRR Abdomen: NT/ND, soft Extremities: + femoral B - Labs Result Diagrams: 12/01/18 06:37 12/01/18 06:37 Troponin/CKMB CK-MB (CK-2) 16.3 ng/mL (0-6.6) H* 12/01/18 06:37 Troponin I 1.088 ng/mL (< 0.028) H* 12/01/18 06:37 - Assessment/Plan Type II SD Sepsis atypical pneumonia Obtain records from [facility] conservative treatment Recent increase in troponin likely related to type 2 SD Abx Long discussion with the son. Pt preparing for TAVR and underwent angio 3 months ago. Was told he had a lesion that needed stenting prior to TAVR. During procedure, pt had a cva. Pt has subsequently had two admissions (total of three) in the last 2 months for CHF. At this point, I do not recommend angio. Recommend conservative treatment given recent infection. Pt also reluctant to undergo cath given recent CVA. I discussed hospice with family if pt decided to not undergo TAVR. They will think about it
--- NOTE | 2018-12-01 14:02 | CON ---
DATE OF CONSULTATION: 11/30/2018 REASON FOR CONSULTATION: Shortness of breath and elevated troponin. HISTORY OF PRESENT ILLNESS: Mr. Lewis is a 73-year-old gentleman, patient of Dr. Gonzalez at [facility]. He recently presented with shortness of breath and cough and respiratory infection. His daughter who is with him states he has had subjective fevers. transfer patient. His troponin was minimally elevated. White blood cell count was markedly elevated at 17,000 with elevated BNP of 773. Current notes from [facility] are pending. PAST MEDICAL HISTORY: Hypertension, hyperlipidemia, diabetes mellitus, CVA, PVD, schizophrenia, aortic stenosis, carotid endarterectomy. SOCIAL HISTORY: Previous tobacco abuse. HOME MEDICATIONS: Include: 1. Vitamin B12. 2. Plavix. 3. Aspirin. 4. Carvedilol. 5. Niacin. 6. Glipizide. 7. Spironolactone. 8. Fish oil. REVIEW OF SYSTEMS: A 10-point review of systems is reviewed as above, otherwise negative. PHYSICAL EXAMINATION: GENERAL: Patient is a pleasant male, who is in no acute distress. The patient appears their stated age. VITAL SIGNS: Blood pressure 110/60, pulse 84, and temperature 97.6. NEUROLOGIC: The patient is alert and oriented x3 with no focal neurologic deficits. HEENT: Sclerae without icterus. Mouth has moist mucous membranes with normal pallor. NECK: No JVD. Carotid upstroke brisk. No bruits bilaterally. LUNGS: Clear to auscultation with unlabored respirations. BACK: No scoliosis or kyphosis. CARDIAC: Regular rate and rhythm with normal S1 and S2. No S3 or S4 noted. No significant rubs, murmurs, thrills, or gallops noted throughout the precordium. PMI is not displaced. There is no parasternal heave. ABDOMEN: Soft, nontender, nondistended. No peritoneal signs present. No hepatosplenomegaly. No abnormal striae. EXTREMITIES: 2+ femoral and 2+ dorsalis pedis pulses. No cyanosis, clubbing, or edema. SKIN: No gross abnormalities. PERTINENT LABORATORY DATA: Creatinine 1.51. Peak troponin 0.1. EKG shows normal sinus rhythm, ST wave changes suggesting LVH. When compared to previous EKG from 3 months ago, no significant changes present. IMPRESSION: 1. Shortness of breath. 2. Pneumonia. 3. Schizophrenia. 4. Elevated troponin. 5. Abnormal EKG. RECOMMENDATION: I would like to obtain previous records from Dr. Gonzalez at [facility]. There may be recent angio based on vague history from the family. This would certainly be helpful moving forward. His troponin is type 2 MA, not type 1. We will continue covering with antibiotic therapy and trend troponin levels. Job ID: [id number]
[2018-12-01] MEDS: Acetaminophen 325 MG TAB PO PRN (15:06)
[2018-12-01] MEDS: HYDROcodone/Acetaminophen 5/325 mg Tablet PO PRN (20:18)
[2018-12-02] MEDS: HYDROcodone/Acetaminophen 5/325 mg Tablet PO PRN ×3 (00:14→23:40)
[2018-12-02] MEDS: Cefepime 1 GM in Sodium Chloride 0.9% 100 ML IVPB SCH ×2 (04:51→16:20)
[2018-12-02 05:25] LABS: Anion Gap 16 mmol/L (10-20); BUN (Urea Nitrogen) 43 mg/dL (8.4-25.7); Calc. Creatinine Clearance 63 mL/min (70-130); Calcium 9.8 mg/dL (7.8-10.44); Carbon Dioxide 27 mmol/L (23-31); Chloride 100 mmol/L (98-107); Estimated GFR-MDRD 41; Glucose 204 mg/dL (83-110); Sodium 139 mmol/L (136-145)
[2018-12-02 05:38] LABS: Band 5 % (5-11); Hemoglobin 11.7 g/dL (14.0-18.0); Hypochromia SLIGHT = 6-15 cells (100X) (0-5/hpf); Lymphocytes 9 % (21-51); MDiff Complete? YES; Mean Corpuscular HGB CONC 33.6 g/dL (32.0-36.0); Mean Corpuscular Hemoglobin 31.4 pg (27.0-31.0); Mean Corpuscular Volume 93.3 fL (78.0-98.0); Mean Platelet Volume 8.7 fL (7.4-10.4); Monocytes 9 % (0-10); Neutrophil 77 % (42-75); Platelet Count 206 thou/uL (130-400); Platelet Morphology Comment Appears Adequate; RBC Distribution Width 11.6 % (11.5-14.5); Red Blood Cell (RBC) Count 3.72 mill/uL (4.70-6.10); White Blood Cell (WBC) Count 14.2 thou/uL (4.8-10.8)
--- NOTE | 2018-12-02 07:09 | PDOC.CTH ---
Cardiology Progress Note - Subjective No changes noted. - Objective Vital Signs Temp Pulse Resp BP Pulse Ox 12/02/18 03:14 97.8 F 107 H 140/93 H 94 L 12/01/18 19:15 97.9 F 90 16 108/53 L 95 Weight 250 lb 9.6 oz 12/01/18 12/02/18 12/03/18 06:59 06:59 06:59 Intake Total 560 1330 Output Total 200 Balance 360 1330 - Physical Examination General/Neuro: NAD Neck: no JVD present Lungs: CTA, unlabored respirations Heart: PMI normal Abdomen: no HSM, NT/ND, soft Extremities: + femoral B - Telemetry Telemetry Rhythm: sr - Labs Result Diagrams: 12/02/18 04:21 12/02/18 04:21 Troponin/CKMB CK-MB (CK-2) 16.3 ng/mL (0-6.6) H* 12/01/18 06:37 Troponin I 1.088 ng/mL (< 0.028) H* 12/01/18 06:37 - Assessment/Plan Type II TX Sepsis atypical pneumonia REC: 4.25 Please see previous note. Recnet echo with severe Plan is to treat with antibiotics and fu at to complete CV workup No further recommendations. Please reconsult if needed.
[2018-12-02] MEDS: Aspirin 81 mg Enteric Coated Tablet PO SCH (09:00)
[2018-12-02] MEDS: Citalopram 20 MG TAB PO SCH (09:00)
[2018-12-02] MEDS: Clopidogrel Bisulfate 75 MG TAB PO SCH (09:00)
[2018-12-02] MEDS: Spironolactone 25 MG TAB PO SCH ×2 (09:00→17:30)
[2018-12-02] MEDS: glipiZIDE 10 MG TAB PO SCH (09:00)
[2018-12-02] MEDS: Niacin 500 MG TAB PO SCH (09:00)
[2018-12-02] MEDS: Carvedilol 6.25 MG TAB PO SCH ×2 (09:00→17:30)
[2018-12-02] MEDS: Enoxaparin Sodium 40 MG/0.4 ML SYRINGE SC SCH (09:01)
[2018-12-02] MEDS: Furosemide 40 MG TAB PO SCH (13:39)
[2018-12-02] MEDS: HumaLOG 300 UNITS/3 ML VIAL SC PRN (13:39)
--- NOTE | 2018-12-02 15:15 | PDOC.PN ---
- Subjective Encounter Start Date: 12/02/18 Encounter Start Time: 15:13 Subjective: feels a little better.was able to work with PT.sat at the side of bed -: still very weak .but no CP/SOB/abd pain/N/V/D - Objective Resuscitation Status - Order Detail: 12/01/18 11:52 Resuscitation Status Routine Resuscitation Status: DNAR: NO Resuscitation Discussed with: Son Tony, Brother GIO Reviewed: Yes Vital Signs & Weight: Vital Signs (12 hours) Temp Pulse Pulse Pulse Resp BP BP 12/02/18 12:00 98.1 F 81 17 12/02/18 10:23 94 82 131/73 109/55 L 12/02/18 10:22 94 82 131/73 109/55 L 12/02/18 08:00 96.5 F L 79 18 12/02/18 03:14 97.8 F 107 H BP Pulse Ox Pulse Ox Pulse Ox 12/02/18 12:00 122/68 96 12/02/18 10:23 91 L 91 L 12/02/18 10:22 91 L 84 L 12/02/18 08:00 118/64 94 L 12/02/18 03:14 140/93 H 94 L Weight Weight 250 lb 9.6 oz I&O: 12/01/18 12/02/18 12/03/18 06:59 06:59 06:59 Intake Total 560 1330 Output Total 200 Balance 360 1330 Result Diagrams: 12/02/18 04:21 12/02/18 04:21 Additional Labs: Accuchecks 12/02/18 12/02/18 12/01/18 11:09 05:18 19:48 POC Glucose 278 H 215 H 183 H 12/01/18 11/30/18 06:30 16:22 POC Glucose 257 H 182 H Microbiology 11/29/18 15:48 Throat - Pending Group A Streptococcus Culture - Final 11/29/18 15:26 Throat - Pending Group A Streptococcus Screen (JUSTYN) - Final 11/29/18 15:26 Nasal swab Influenza Types A,B Direct EIA - Final 11/29/18 15:55 Venous blood - Left Arm Blood Culture - Preliminary NO GROWTH AT 48 HOURS 11/29/18 15:25 Urine Straight Catheter Urine Culture - Preliminary Gram Variable Riley 11/29/18 15:12 Venous blood - Right Arm Blood Culture - Preliminary NO GROWTH AT 48 HOURS Laboratory Tests 10/30/18 11/29/18 11/29/18 17:07 15:14 21:15 WBC Band Neuts % (Manual) Creatinine 1.78 H 1.51 H Troponin I 0.101 H 11/30/18 11/30/18 12/01/18 02:10 04:30 06:37 WBC Band Neuts % (Manual) Creatinine 1.76 H Troponin I 0.087 H 0.098 H 12/01/18 12/01/18 12/02/18 06:37 06:37 04:21 WBC 20.2 H Band Neuts % (Manual) 15 H Creatinine 1.64 H Troponin I 1.088 H* 12/02/18 04:21 WBC 14.2 H Band Neuts % (Manual) 5 Creatinine Troponin I Phys Exam - Physical Examination Constitutional: NAD chronically ill looking HEENT: PERRLA, moist MMs, sclera anicteric, oral pharynx no lesions Neck: no nodes, no JVD, supple, full ROM Respiratory: no wheezing, no rales, no rhonchi, clear to auscultation bilateral Cardiovascular: RRR, no significant murmur Gastrointestinal: soft, non-tender, no distention, positive bowel sounds Musculoskeletal: no edema, pulses present Neurological: non-focal, normal sensation, moves all 4 limbs able to move all 4 ext against gravity Psychiatric: normal affect, A&O x 3 Skin: no rash Dx/Plan (1) Sepsis Code(s): A41.9 - SEPSIS, UNSPECIFIED ORGANISM Status: Acute Comment: Cx negative so far. on empiric ABx. Monitor. Improving (2) Type 2 myocardial infarction Code(s): I21.A1 - MYOCARDIAL INFARCTION TYPE 2 Status: Acute Comment: likley due to demand ischemia from Sepsis (3) PNA (pneumonia) Code(s): J18.9 - PNEUMONIA, UNSPECIFIED ORGANISM Status: Acute Qualifiers: Aspiration pneumonia type: unspecified Comment: on empiric IV ABx. follow Cx results. will get employee relations representative eval to r/o aspiration .recent CVA (4) Leukocytosis Code(s): D72.829 - ELEVATED WHITE BLOOD CELL COUNT, UNSPECIFIED Status: Acute Comment: improving. check in am (5) Aortic stenosis Code(s): I35.0 - NONRHEUMATIC AORTIC (VALVE) STENOSIS Status: Chronic (6) HTN (hypertension) Code(s): I10 - ESSENTIAL (PRIMARY) HYPERTENSION Status: Chronic (7) CKD (chronic kidney disease), stage II Code(s): N18.2 - CHRONIC KIDNEY DISEASE, STAGE 2 (MILD) Status: Chronic Comment: Avoid nephrotoxic agents and limit contrast exposure.stable (8) Peripheral vascular disease Code(s): I73.9 - PERIPHERAL VASCULAR DISEASE, UNSPECIFIED Status: Chronic Comment: Continue ASA/Plavix (9) Physical deconditioning Code(s): R53.81 - OTHER MALAISE Status: Chronic Comment: PT for functional assessment (10) CAD (coronary artery disease) Code(s): I25.10 - ATHSCL HEART DISEASE OF [place] CORONARY ARTERY W/O ANG PCTRS Status: Chronic Comment: Recent OP Cath. cont home meds ASA, plavix,Coreg, lasix and aldactone - Plan continue antibiotics, PT/OT, respiratory therapy, incentive spirometry, out of bed/ambulate, DVT proph w/SCDs supportive care. 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 -: Follow cardiology recs -: increase activity and Po intake -: am labs * . Review of Systems - Review of Systems Constitutional: weakness, malaise. negative: fever, chills, sweats, other Respiratory: Cough, Dry, SOB with Excertion. negative: Shortness of Breath, Hemoptysis, Pleuritic Pain, Sputum, Wheezing Cardiovascular: negative: chest pain, palpitations, orthopnea, paroxysmal nocturnal dyspnea, edema, light headedness, other Gastrointestinal: negative: Nausea, Vomiting, Abdominal Pain, Diarrhea, Constipation, Melena, Hematochezia, Other Genitourinary: negative: Dysuria, Frequency, Incontinence, Hematuria, Retention , Other Musculoskeletal: negative: Neck Pain, Shoulder Pain, Arm Pain, Back Pain, Hand Pain, Leg Pain, Foot Pain, Other Neurological: negative: Weakness, Numbness, Incoordination, Change in Speech, Confusion, Seizures, Other - Medications/Allergies Allergies/Adverse Reactions: Allergies Allergy/AdvReac Type Severity Reaction Status Date / Time No Known Allergies Allergy Verified 08/07/18 02:11 Medications: Current Medications Acetaminophen (Tylenol) 650 mg PO Q4H PRN PRN Reason: Headache/Fever/Mild Pain (1-3) Last Admin: 12/01/18 15:06 Dose: 650 mg Hydrocodone Bitart/Acetaminophen ([place] 5/325) 1 tab PO Q4H PRN PRN Reason: Moderate Pain (4-6) Last Admin: 12/01/18 20:18 Dose: 1 tab Hydrocodone Bitart/Acetaminophen ([place] 5/325) 2 tab PO Q4H PRN PRN Reason: Severe Pain (7-10) Last Admin: 12/02/18 04:51 Dose: 2 tab Aspirin (Ecotrin) 81 mg PO DAILY [facility] Last Admin: 12/02/18 09:00 Dose: 81 mg Carvedilol (Coreg) 6.25 mg PO BID-[facility] Last Admin: 12/02/18 09:00 Dose: 6.25 mg Citalopram Hydrobromide (Celexa) 20 mg PO DAILY [facility] Last Admin: 12/02/18 09:00 Dose: 20 mg Clopidogrel Bisulfate (Plavix) 75 mg PO DAILY [facility] Last Admin: 12/02/18 09:00 Dose: 75 mg Dextrose/Water (Dextrose 50%) 25 gm SLOW IVP PRN PRN PRN Reason: Hypoglycemia Enoxaparin Sodium (Lovenox) 40 mg SC 0900 [facility] Last Admin: 12/02/18 09:01 Dose: 40 mg Furosemide (Lasix) 40 mg PO 0900,1400 [facility] Last Admin: 12/02/18 13:39 Dose: 40 mg Glipizide (Glucotrol) 10 mg PO DAILY-[facility] Last Admin: 12/02/18 09:00 Dose: 10 mg Glucagon (Glucagon) 1 mg IM PRN PRN PRN Reason: Hypoglycemia Cefepime HCl 1 gm/ Sodium (Chloride) 100 mls @ 200 mls/hr IVPB 0400,1600 [facility] Last Admin: 12/02/18 04:51 Dose: 100 mls Dextrose/Water (D5w) 1,000 mls @ 0 mls/hr IV .Q0M PRN PRN Reason: Hypoglycemia Levofloxacin 750 mg/ Device 150 mls @ 100 mls/hr IVPB Q24HR [facility] Last Admin: 12/02/18 13:39 Dose: 150 mls Insulin Human Lispro (Humalog) 0 units SC .MILD SLIDING SCALE PRN PRN Reason: Mild Correctional Scale Last Admin: 12/02/18 13:39 Dose: 4 units Niacin (Niacin) 1,000 mg PO DAILY [facility] Last Admin: 12/02/18 09:00 Dose: 1,000 mg Sodium Chloride (Flush - Normal Saline) 10 ml IVF Q12HR [facility] Last Admin: 12/02/18 09:00 Dose: 10 ml Sodium Chloride (Flush - Normal Saline) 10 ml IVF PRN PRN PRN Reason: Saline Flush Spironolactone (Aldactone) 25 mg PO BID-[facility] Last Admin: 12/02/18 09:00 Dose: 25 mg
[2018-12-02 18:50] LABS: Analyzer IN Cardio OR; Base Excess (BEa) -3.8 mEq/L (-2.0 to +3.0); CO2 Tension 37.5 mmHg (35.0-45.0); Calcium, Ionized 1.22 mmol/L (1.12-1.30); Carboxyhemoglobin (COHb) 1.7 gm% (0.0-3.0); Hemoglobin (Hb) 12.9 g/dL (14.0-18.0); Potassium - ABG Lab 3.86 mmol/L (3.70-5.30); pH, Arterial 7.37 (7.35-7.45)
[2018-12-02 18:51] LABS: O2 Tension (PaO2) 49.5 mmHg (> 70.0); Puncture Site RBRACH
[2018-12-03] MEDS: Cefepime 1 GM in Sodium Chloride 0.9% 100 ML IVPB SCH (04:45)
[2018-12-03] MEDS: HYDROcodone/Acetaminophen 5/325 mg Tablet PO PRN ×2 (04:45→17:58)
[2018-12-03 06:55] LABS: #Eosinphils 0.4 thou/uL (0.0-0.7); #Lymphocytes 1.5 thou/uL (1.20-3.40); #Monocytes 1.3 thou/uL (0.11-0.59); #Neutrophils 8.4 thou/uL (1.40-6.50); %Basophils 0.2 % (0.0-1.0); %Eosinophils 3.8 % (0.0-10.0); %Lymphocytes 12.6 % (21.0-51.0); %Monocytes 11.2 % (0.0-10.0); %Neutrophils 72.2 % (42.0-75.0); Hemoglobin 10.7 g/dL (14.0-18.0); Mean Corpuscular HGB CONC 33.8 g/dL (32.0-36.0); Mean Corpuscular Hemoglobin 31.6 pg (27.0-31.0); Mean Corpuscular Volume 93.4 fL (78.0-98.0); Platelet Count 213 thou/uL (130-400); RBC Distribution Width 11.6 % (11.5-14.5); White Blood Cell (WBC) Count 11.6 thou/uL (4.8-10.8)
--- NOTE | 2018-12-03 07:10 | EKG ---
Test Reason : Blood Pressure : / mmHG Vent. Rate : 105 BPM Atrial Rate : 105 BPM P-R Int : 320 ms QRS Dur : 096 ms QT Int : 354 ms P-R-T Axes : 012 007 127 degrees QTc Int : 467 ms Sinus tachycardia with 1st degree A-V block Left ventricular hypertrophy with repolarization abnormality Marked ST abnormality, possible anterior subendocardial injury Abnormal ECG When compared with ECG of 07-AUG-2018 00:58, Vent. rate has increased BY [address] now depressed in Anterior leads T wave inversion no longer evident in Inferior leads Confirmed by MORGAN FAIRCHILD ([id number]) on 12/03/2018 7:10:11 AM Referred By: PAUL Confirmed By:MORGAN FAIRCHILD
[2018-12-03 07:24] LABS: Anion Gap 15 mmol/L (10-20); BUN (Urea Nitrogen) 40 mg/dL (8.4-25.7); Calc. Creatinine Clearance 65 mL/min (70-130); Calcium 9.5 mg/dL (7.8-10.44); Carbon Dioxide 26 mmol/L (23-31); Chloride 99 mmol/L (98-107); Estimated GFR-MDRD 44; Glucose 198 mg/dL (83-110); Potassium 3.8 mmol/L (3.5-5.1); Sodium 136 mmol/L (136-145)
[2018-12-03 07:52] LABS: CKMB 13.6 ng/mL (0-6.6)
[2018-12-03] MEDS: glipiZIDE 10 MG TAB PO SCH (08:30)
[2018-12-03] MEDS: Carvedilol 6.25 MG TAB PO SCH ×2 (08:45→16:44)
[2018-12-03] MEDS: Aspirin 81 mg Enteric Coated Tablet PO SCH (08:46)
[2018-12-03] MEDS: Clopidogrel Bisulfate 75 MG TAB PO SCH (08:46)
[2018-12-03] MEDS: Enoxaparin Sodium 40 MG/0.4 ML SYRINGE SC SCH (08:46)
[2018-12-03] MEDS: Citalopram 20 MG TAB PO SCH (08:46)
[2018-12-03] MEDS: Niacin 500 MG TAB PO SCH (08:46)
[2018-12-03] MEDS: Spironolactone 25 MG TAB PO SCH ×2 (08:49→16:44)
[2018-12-03] MEDS: Furosemide 40 MG TAB PO SCH ×2 (11:00→14:25)
--- NOTE | 2018-12-03 11:35 | PDOC.PN ---
- Subjective Encounter Start Date: 12/03/18 Encounter Start Time: 11:32 Subjective: admitted with cough productive of sputum, sorethroat and weakness -: Found to have fever, leucocytosis and elevated troponin. -: Feeling better today. - Objective Resuscitation Status - Order Detail: 12/01/18 11:52 Resuscitation Status Routine Resuscitation Status: DNAR: NO Resuscitation Discussed with: Son Tony Brother Vital Signs & Weight: Vital Signs (12 hours) Temp Pulse Resp BP Pulse Ox 12/03/18 08:29 98.1 F 88 18 132/58 L 100 12/03/18 04:00 97.8 F 97 20 134/65 94 L Weight Weight 249 lb 8 oz I&O: 12/02/18 12/03/18 12/04/18 06:59 06:59 06:59 Intake Total 1330 1150 Balance 1330 1150 Result Diagrams: 12/03/18 06:38 12/03/18 06:38 Additional Labs: Accuchecks 12/03/18 12/03/18 12/02/18 11:17 06:01 21:08 POC Glucose 211 H 208 H 228 H 12/02/18 12/02/18 18:27 17:00 POC Glucose 222 H 185 H Phys Exam - Physical Examination obese HEENT: moist MMs Neck: no JVD Respiratory: no wheezing, no rhonchi fair air entry bilaterally with some transmitted sound. Cardiovascular: RRR systolic murmur noted Gastrointestinal: soft, non-tender, no distention, positive bowel sounds Musculoskeletal: no edema awake and conversational. Moving all limbs Psychiatric: A&O x 3 Dx/Plan (1) Acute respiratory failure with hypoxia Code(s): J96.01 - ACUTE RESPIRATORY FAILURE WITH HYPOXIA Status: Acute (2) CKD (chronic kidney disease) stage 3, GFR 30-59 ml/min Code(s): N18.3 - CHRONIC KIDNEY DISEASE, STAGE 3 (MODERATE) Status: Acute (3) Dysphagia causing pulmonary aspiration with swallowing Code(s): R13.19 - OTHER DYSPHAGIA Status: Acute (4) PNA (pneumonia) Code(s): J18.9 - PNEUMONIA, UNSPECIFIED ORGANISM Status: Acute Qualifiers: Aspiration pneumonia type: unspecified Comment: on empiric IV ABx. follow Cx results. will get dental sales representative eval to r/o aspiration .recent CVA (5) Sepsis Code(s): A41.9 - SEPSIS, UNSPECIFIED ORGANISM Status: Acute Comment: Cx negative so far. on empiric ABx. Monitor. Improving (6) Type 2 myocardial infarction Code(s): I21.A1 - MYOCARDIAL INFARCTION TYPE 2 Status: Acute Comment: likley due to demand ischemia from Sepsis (7) Aortic stenosis Code(s): I35.0 - NONRHEUMATIC AORTIC (VALVE) STENOSIS Status: Chronic (8) CAD (coronary artery disease) Code(s): I25.10 - ATHSCL HEART DISEASE OF [place] CORONARY ARTERY W/O ANG PCTRS Status: Chronic Comment: Recent OP Cath. cont home meds ASA, plavix,Coreg, lasix and aldactone (9) HTN (hypertension) Code(s): I10 - ESSENTIAL (PRIMARY) HYPERTENSION Status: Chronic (10) Peripheral vascular disease Code(s): I73.9 - PERIPHERAL VASCULAR DISEASE, UNSPECIFIED Status: Chronic Comment: Continue ASA/Plavix (11) Physical deconditioning Code(s): R53.81 - OTHER MALAISE Status: Chronic Comment: PT for functional assessment - Plan DC IV levaquin and cefepime and start oral augmentin and doxycycline -: Trend troponin -: Get rehab screening for possible inpatit rehab. -: Monitor renal function with diuretic therapy. 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
[2018-12-03] MEDS: HumaLOG 300 UNITS/3 ML VIAL SC PRN ×2 (12:03→17:59)
[2018-12-03] MEDS ORDERED: Amoxicillin/Potassium Clav 875 MG TAB PO SCH (12:15)
[2018-12-03] MEDS ORDERED: Doxycycline 100 MG CAP PO SCH (12:15)
[2018-12-03 13:51] LABS: Troponin I 4.582 ng/mL (< 0.028)
[2018-12-03] MEDS: Amoxicillin/Potassium Clav 875 MG TAB PO SCH (21:34)
[2018-12-03] MEDS: Doxycycline 100 MG CAP PO SCH (21:34)
[2018-12-04] MEDS: HYDROcodone/Acetaminophen 5/325 mg Tablet PO PRN ×3 (01:10→20:34)
[2018-12-04 05:29] LABS: #Basophils 0.1 thou/uL (0.0-0.2); #Eosinphils 0.9 thou/uL (0.0-0.7); #Lymphocytes 1.7 thou/uL (1.20-3.40); #Monocytes 1.4 thou/uL (0.11-0.59); #Neutrophils 8.2 thou/uL (1.40-6.50); %Basophils 0.6 % (0.0-1.0); %Eosinophils 7.6 % (0.0-10.0); %Lymphocytes 13.6 % (21.0-51.0); %Monocytes 11.4 % (0.0-10.0); %Neutrophils 66.8 % (42.0-75.0); Hemoglobin 11.1 g/dL (14.0-18.0); Mean Corpuscular HGB CONC 33.6 g/dL (32.0-36.0); Mean Corpuscular Hemoglobin 31.4 pg (27.0-31.0); Mean Corpuscular Volume 93.6 fL (78.0-98.0); Mean Platelet Volume 7.9 fL (7.4-10.4); Platelet Count 234 thou/uL (130-400); RBC Distribution Width 11.6 % (11.5-14.5); Red Blood Cell (RBC) Count 3.52 mill/uL (4.70-6.10); White Blood Cell (WBC) Count 12.3 thou/uL (4.8-10.8)
[2018-12-04 05:52] LABS: Anion Gap 14 mmol/L (10-20); BUN (Urea Nitrogen) 37 mg/dL (8.4-25.7); Calc. Creatinine Clearance 68 mL/min (70-130); Calcium 9.8 mg/dL (7.8-10.44); Carbon Dioxide 29 mmol/L (23-31); Chloride 98 mmol/L (98-107); Estimated GFR-MDRD 45; Glucose 170 mg/dL (83-110); Potassium 3.5 mmol/L (3.5-5.1); Sodium 137 mmol/L (136-145)
[2018-12-04] MEDS: Spironolactone 25 MG TAB PO SCH ×2 (08:01→16:54)
[2018-12-04] MEDS: Carvedilol 6.25 MG TAB PO SCH ×2 (08:01→16:54)
[2018-12-04] MEDS: glipiZIDE 10 MG TAB PO SCH (08:01)
[2018-12-04] MEDS: Clopidogrel Bisulfate 75 MG TAB PO SCH (08:03)
[2018-12-04] MEDS: Enoxaparin Sodium 40 MG/0.4 ML SYRINGE SC SCH (08:03)
[2018-12-04] MEDS: Aspirin 81 mg Enteric Coated Tablet PO SCH (08:03)
[2018-12-04] MEDS: Citalopram 20 MG TAB PO SCH (08:03)
[2018-12-04] MEDS: Niacin 500 MG TAB PO SCH (08:04)
[2018-12-04] MEDS: Furosemide 40 MG TAB PO SCH ×2 (10:14→14:15)
[2018-12-04] MEDS: Doxycycline 100 MG CAP PO SCH ×2 (10:14→20:33)
[2018-12-04] MEDS: Amoxicillin/Potassium Clav 875 MG TAB PO SCH ×2 (10:15→20:33)
[2018-12-04] MEDS: HumaLOG 300 UNITS/3 ML VIAL SC PRN ×2 (12:31→17:11)
--- NOTE | 2018-12-04 17:02 | PDOC.PN ---
- Subjective Encounter Start Date: 12/04/18 Encounter Start Time: 08:20 Pt seen for followup re: acute hypoxic respiratory failure. Feels better. - Objective Resuscitation Status - Order Detail: 12/01/18 11:52 Resuscitation Status Routine Resuscitation Status: DNAR: NO Resuscitation Discussed with: Son Tony, Brother GIO Reviewed: Yes Vital Signs & Weight: Vital Signs (12 hours) Temp Pulse Resp BP Pulse Ox 12/04/18 16:50 97.7 F 77 18 109/59 L 95 12/04/18 12:15 97.9 F 84 18 122/72 95 12/04/18 07:53 97.9 F 74 18 107/72 97 12/04/18 05:06 92 L Weight Weight 250 lb 9.6 oz I&O: 12/03/18 12/04/18 12/05/18 06:59 06:59 06:59 Intake Total 1150 1590 Balance 1150 1590 Result Diagrams: 12/04/18 05:05 12/04/18 05:05 Additional Labs: Accuchecks 12/04/18 12/04/18 12/04/18 16:47 11:18 05:37 POC Glucose 177 H 157 H 173 H 12/04/18 12/03/18 12/03/18 02:38 20:28 17:03 POC Glucose 180 H 177 H 166 H EKG Reviewed by me: Yes (Tele: NSR) Phys Exam - Physical Examination Constitutional: NAD HEENT: moist MMs Neck: supple Respiratory: clear to auscultation bilateral Cardiovascular: RRR Gastrointestinal: soft Neurological: moves all 4 limbs Psychiatric: normal affect Dx/Plan (1) Acute respiratory failure with hypoxia Code(s): J96.01 - ACUTE RESPIRATORY FAILURE WITH HYPOXIA Status: Acute Comment: Improving (2) PNA (pneumonia) Code(s): J18.9 - PNEUMONIA, UNSPECIFIED ORGANISM Status: Acute Qualifiers: Aspiration pneumonia type: unspecified Comment: on oral antibiotics (3) Type 2 myocardial infarction Code(s): I21.A1 - MYOCARDIAL INFARCTION TYPE 2 Status: Acute Comment: stable (4) CKD (chronic kidney disease) stage 3, GFR 30-59 ml/min Code(s): N18.3 - CHRONIC KIDNEY DISEASE, STAGE 3 (MODERATE) Status: Chronic Comment: stable - Plan * . Review of Systems - Review of Systems Respiratory: Cough, Sputum. negative: Dry, Shortness of Breath, Hemoptysis, SOB with Excertion, Pleuritic Pain, Wheezing Cardiovascular: negative: chest pain, palpitations, orthopnea, paroxysmal nocturnal dyspnea, edema, light headedness - Medications/Allergies Allergies/Adverse Reactions: Allergies Allergy/AdvReac Type Severity Reaction Status Date / Time No Known Allergies Allergy Verified 08/07/18 02:11 Medications: Current Medications Acetaminophen (Tylenol) 650 mg PO Q4H PRN PRN Reason: Headache/Fever/Mild Pain (1-3) Last Admin: 12/01/18 15:06 Dose: 650 mg Hydrocodone Bitart/Acetaminophen ([place] 5/325) 1 tab PO Q4H PRN PRN Reason: Moderate Pain (4-6) Last Admin: 12/04/18 12:31 Dose: 1 tab Hydrocodone Bitart/Acetaminophen ([place] 5/325) 2 tab PO Q4H PRN PRN Reason: Severe Pain (7-10) Last Admin: 12/04/18 01:10 Dose: 2 tab Amoxicillin/Clavulanate Potassium (Augmentin) 875 mg PO Q12HR [facility] Last Admin: 12/04/18 10:15 Dose: 875 mg Aspirin (Ecotrin) 81 mg PO DAILY [facility] Last Admin: 12/04/18 08:03 Dose: 81 mg Carvedilol (Coreg) 6.25 mg PO BID-[facility] Last Admin: 12/04/18 16:54 Dose: 6.25 mg Citalopram Hydrobromide (Celexa) 20 mg PO DAILY [facility] Last Admin: 12/04/18 08:03 Dose: 20 mg Clopidogrel Bisulfate (Plavix) 75 mg PO DAILY [facility] Last Admin: 12/04/18 08:03 Dose: 75 mg Dextrose/Water (Dextrose 50%) 25 gm SLOW IVP PRN PRN PRN Reason: Hypoglycemia Doxycycline Hyclate (Vibramycin) 100 mg PO BID [facility] Last Admin: 12/04/18 10:14 Dose: 100 mg Enoxaparin Sodium (Lovenox) 40 mg SC 0900 [facility] Last Admin: 12/04/18 08:03 Dose: 40 mg Furosemide (Lasix) 40 mg PO 0900,1400 [facility] Last Admin: 12/04/18 14:15 Dose: 40 mg Glipizide (Glucotrol) 10 mg PO DAILY-[facility] Last Admin: 12/04/18 08:01 Dose: 10 mg Glucagon (Glucagon) 1 mg IM PRN PRN PRN Reason: Hypoglycemia Dextrose/Water (D5w) 1,000 mls @ 0 mls/hr IV .Q0M PRN PRN Reason: Hypoglycemia Insulin Human Lispro (Humalog) 0 units SC .MILD SLIDING SCALE PRN PRN Reason: Mild Correctional Scale Last Admin: 12/04/18 12:31 Dose: 2 units Niacin (Niacin) 1,000 mg PO DAILY [facility] Last Admin: 12/04/18 08:04 Dose: 1,000 mg Sodium Chloride (Flush - Normal Saline) 10 ml IVF Q12HR [facility] Last Admin: 12/04/18 10:15 Dose: Not Given Sodium Chloride (Flush - Normal Saline) 10 ml IVF PRN PRN PRN Reason: Saline Flush Spironolactone (Aldactone) 25 mg PO BID-[facility] Last Admin: 12/04/18 16:54 Dose: 25 mg
[2018-12-05] MEDS: Spironolactone 25 MG TAB PO SCH ×2 (08:01→16:27)
[2018-12-05] MEDS: glipiZIDE 10 MG TAB PO SCH (08:01)
[2018-12-05] MEDS: Carvedilol 6.25 MG TAB PO SCH ×2 (08:01→16:27)
[2018-12-05] MEDS: Aspirin 81 mg Enteric Coated Tablet PO SCH (08:01)
[2018-12-05] MEDS: Amoxicillin/Potassium Clav 875 MG TAB PO SCH ×2 (08:01→20:57)
[2018-12-05] MEDS: Citalopram 20 MG TAB PO SCH (08:02)
[2018-12-05] MEDS: Doxycycline 100 MG CAP PO SCH ×2 (08:02→20:57)
[2018-12-05] MEDS: Niacin 500 MG TAB PO SCH (08:02)
[2018-12-05] MEDS: Furosemide 40 MG TAB PO SCH ×2 (08:02→15:00)
[2018-12-05] MEDS: Clopidogrel Bisulfate 75 MG TAB PO SCH (08:02)
[2018-12-05] MEDS: Enoxaparin Sodium 40 MG/0.4 ML SYRINGE SC SCH (08:02)
--- NOTE | 2018-12-05 08:05 | PDOC.PN ---
- Subjective Encounter Start Date: 12/05/18 Encounter Start Time: 08:03 Subjective: Feeling better. -: Still requiring oxygen at nights dueto desaturation while asleep -: Deniedcough, SOb, or fever. - Objective Resuscitation Status - Order Detail: 12/01/18 11:52 Resuscitation Status Routine Resuscitation Status: DNAR: NO Resuscitation Discussed with: Son Tony, Brother Vital Signs & Weight: Vital Signs (12 hours) Temp Pulse Resp BP Pulse Ox 12/05/18 07:46 97.7 F 77 18 124/61 94 L 12/05/18 04:00 97.9 F 74 18 109/69 93 L 12/04/18 20:20 98 Weight Weight 251 lb 1.6 oz I&O: 12/04/18 12/05/18 12/06/18 06:59 06:59 06:59 Intake Total 1590 1280 Balance 1590 1280 Result Diagrams: 12/04/18 05:05 12/04/18 05:05 Additional Labs: Accuchecks 12/05/18 12/05/18 12/04/18 05:18 02:11 20:21 POC Glucose 182 H 202 H 167 H 12/04/18 12/04/18 16:47 11:18 POC Glucose 177 H 157 H Phys Exam - Physical Examination Constitutional: NAD HEENT: moist MMs Neck: no JVD, supple Respiratory: no wheezing, no rhonchi fair air entry bilaterally with transmitted sound Cardiovascular: RRR 3-4/6 systolicmurmur noted Gastrointestinal: soft, non-tender, no distention, positive bowel sounds Musculoskeletal: no edema, pulses present Neurological: non-focal awake and conversational. moving all limbs Psychiatric: A&O x 3 Dx/Plan (1) Acute respiratory failure with hypoxia Code(s): J96.01 - ACUTE RESPIRATORY FAILURE WITH HYPOXIA Status: Acute Comment: Improved. Now on oxygen at nights (2) CKD (chronic kidney disease) stage 3, GFR 30-59 ml/min Code(s): N18.3 - CHRONIC KIDNEY DISEASE, STAGE 3 (MODERATE) Status: Chronic Comment: stable (3) Dysphagia causing pulmonary aspiration with swallowing Code(s): R13.19 - OTHER DYSPHAGIA Status: Acute (4) PNA (pneumonia) Code(s): J18.9 - PNEUMONIA, UNSPECIFIED ORGANISM Status: Acute Qualifiers: Aspiration pneumonia type: unspecified Comment: on oral antibiotics (5) Sepsis Code(s): A41.9 - SEPSIS, UNSPECIFIED ORGANISM Status: Acute Comment: Cx negative so far. on empiric ABx. Monitor. Improving (6) Type 2 myocardial infarction Code(s): I21.A1 - MYOCARDIAL INFARCTION TYPE 2 Status: Acute Comment: stable (7) Aortic stenosis Code(s): I35.0 - NONRHEUMATIC AORTIC (VALVE) STENOSIS Status: Chronic (8) CAD (coronary artery disease) Code(s): I25.10 - ATHSCL HEART DISEASE OF [place] CORONARY ARTERY W/O ANG PCTRS Status: Chronic Comment: Recent OP Cath. cont home meds ASA, plavix,Coreg, lasix and aldactone (9) HTN (hypertension) Code(s): I10 - ESSENTIAL (PRIMARY) HYPERTENSION Status: Chronic Comment: Controlled (10) Peripheral vascular disease Code(s): I73.9 - PERIPHERAL VASCULAR DISEASE, UNSPECIFIED Status: Chronic Comment: Continue ASA/Plavix (11) Physical deconditioning Code(s): R53.81 - OTHER MALAISE Status: Chronic Comment: PT for functional assessment (12) MOSHE (obstructive sleep apnea) Code(s): G47.33 - OBSTRUCTIVE SLEEP APNEA (ADULT) (PEDIATRIC) Status: Acute Comment: Suspected due to nocturnal desatiration - Plan Continue current antibiotics anddiuretics. -: Recheck CBC and BMP in the am -: Possible discharge back to SNF tomorrow. * .
--- NOTE | 2018-12-05 13:59 | EKG ---
Test Reason : STAT Blood Pressure : / mmHG Vent. Rate : 110 BPM Atrial Rate : 113 BPM P-R Int : 292 ms QRS Dur : 096 ms QT Int : 372 ms P-R-T Axes : -04 -04 145 degrees QTc Int : 503 ms Sinus tachycardia with 1st degree A-V block Left ventricular hypertrophy with repolarization abnormality Marked ST abnormality, possible anterior subendocardial injury Abnormal ECG When compared with ECG of 01-DEC-2018 07:31, No significant change was found Confirmed by MORGAN FAIRCHILD ([id number]) on 12/05/2018 1:59:37 PM Referred By: SIMONE Confirmed By:MORGAN FAIRCHILD
[2018-12-05] MEDS ORDERED: Ondansetron ODT 4 MG TAB PO PRN (14:01)
[2018-12-05] MEDS ORDERED: Bisacodyl 10 MG SUPP PR PRN (14:02)
[2018-12-05] MEDS ORDERED: Polyethylene Glycol 3350 17 GM Packet PO PRN ×2 (14:02→19:30)
[2018-12-06] MEDS: Acetaminophen 325 MG TAB PO PRN (02:54)
[2018-12-06 06:59] LABS: #Basophils 0.1 thou/uL (0.0-0.2); #Eosinphils 0.4 thou/uL (0.0-0.7); #Lymphocytes 1.4 thou/uL (1.20-3.40); #Monocytes 1.3 thou/uL (0.11-0.59); #Neutrophils 14.1 thou/uL (1.40-6.50); %Basophils 0.5 % (0.0-1.0); %Eosinophils 2.2 % (0.0-10.0); %Lymphocytes 8.3 % (21.0-51.0); %Monocytes 7.6 % (0.0-10.0); %Neutrophils 81.4 % (42.0-75.0); Hemoglobin 12.2 g/dL (14.0-18.0); Mean Corpuscular HGB CONC 32.3 g/dL (32.0-36.0); Mean Corpuscular Hemoglobin 30.7 pg (27.0-31.0); Mean Platelet Volume 9.1 fL (7.4-10.4); Platelet Count 257 thou/uL (130-400); RBC Distribution Width 11.9 % (11.5-14.5); Red Blood Cell (RBC) Count 3.99 mill/uL (4.70-6.10); White Blood Cell (WBC) Count 17.3 thou/uL (4.8-10.8)
[2018-12-06 07:24] LABS: Anion Gap 22 mmol/L (10-20); BUN (Urea Nitrogen) 37 mg/dL (8.4-25.7); Calc. Creatinine Clearance 55 mL/min (70-130); Calcium 9.7 mg/dL (7.8-10.44); Carbon Dioxide 21 mmol/L (23-31); Chloride 95 mmol/L (98-107); Estimated GFR-MDRD 36; Glucose 215 mg/dL (83-110); Potassium 4.9 mmol/L (3.5-5.1); Sodium 133 mmol/L (136-145)
[2018-12-06] MEDS: Carvedilol 6.25 MG TAB PO SCH ×3 (08:56→21:07)
[2018-12-06] MEDS: glipiZIDE 10 MG TAB PO SCH (08:56)
[2018-12-06] MEDS: Enoxaparin Sodium 40 MG/0.4 ML SYRINGE SC SCH (08:57)
[2018-12-06] MEDS: Aspirin 81 mg Enteric Coated Tablet PO SCH (08:57)
[2018-12-06] MEDS: Citalopram 20 MG TAB PO SCH (08:57)
[2018-12-06] MEDS: Amoxicillin/Potassium Clav 875 MG TAB PO SCH ×2 (08:57→21:08)
[2018-12-06] MEDS: Doxycycline 100 MG CAP PO SCH ×2 (08:57→21:08)
[2018-12-06] MEDS: Spironolactone 25 MG TAB PO SCH ×2 (08:57→16:33)
[2018-12-06] MEDS: Clopidogrel Bisulfate 75 MG TAB PO SCH (08:57)
[2018-12-06] MEDS: Furosemide 40 MG TAB PO SCH (08:59)
[2018-12-06] MEDS: Niacin 500 MG TAB PO SCH (08:59)
--- NOTE | 2018-12-06 10:41 | PDOC.PN ---
- Subjective Encounter Start Date: 12/06/18 Encounter Start Time: 10:39 Subjective: Nursing staff reported difficulty in waking patient. -: He also had SPO2 in low 80's requiring commencement of oxygen supplement -: SPO2 improved when patient finally woke up. He denied any complaint when up - Objective Resuscitation Status - Order Detail: 12/01/18 11:52 Resuscitation Status Routine Resuscitation Status: DNAR: NO Resuscitation Discussed with: Son Tony Brother Vital Signs & Weight: Vital Signs (12 hours) Temp Pulse Resp BP Pulse Ox 12/06/18 08:46 97.9 F 102 H 20 110/65 96 12/06/18 03:50 97.8 F 113 H 15 106/71 93 L Weight Weight 245 lb 14.4 oz I&O: 12/05/18 12/06/18 12/07/18 06:59 06:59 06:59 Intake Total 1280 1170 Balance 1280 1170 Result Diagrams: 12/06/18 06:31 12/06/18 06:31 Additional Labs: Accuchecks 12/06/18 12/05/18 12/05/18 05:27 20:25 16:41 POC Glucose 225 H 213 H 172 H 12/05/18 10:57 POC Glucose 214 H Phys Exam - Physical Examination Constitutional: NAD afebrile, no distress HEENT: moist MMs Neck: supple fair air entry with bilateral crackles especially right base. Cardiovascular: RRR Gastrointestinal: soft, non-tender, no distention, positive bowel sounds Musculoskeletal: no edema, pulses present awake and conversational. Moves all limbs but lower limbs weakly Psychiatric: A&O x 3 Dx/Plan (1) Acute respiratory failure with hypoxia Code(s): J96.01 - ACUTE RESPIRATORY FAILURE WITH HYPOXIA Status: Acute Comment: Improved. Had low Spo2 and was started on oxygen this am. (2) CKD (chronic kidney disease) stage 3, GFR 30-59 ml/min Code(s): N18.3 - CHRONIC KIDNEY DISEASE, STAGE 3 (MODERATE) Status: Chronic Comment: stable (3) Dysphagia causing pulmonary aspiration with swallowing Code(s): R13.19 - OTHER DYSPHAGIA Status: Acute (4) PNA (pneumonia) Code(s): J18.9 - PNEUMONIA, UNSPECIFIED ORGANISM Status: Acute Qualifiers: Aspiration pneumonia type: unspecified Comment: on oral antibiotics (5) Sepsis Code(s): A41.9 - SEPSIS, UNSPECIFIED ORGANISM Status: Acute Comment: Cx negative so far. on empiric ABx. Monitor. Improving (6) Type 2 myocardial infarction Code(s): I21.A1 - MYOCARDIAL INFARCTION TYPE 2 Status: Acute Comment: stable (7) Aortic stenosis Code(s): I35.0 - NONRHEUMATIC AORTIC (VALVE) STENOSIS Status: Chronic (8) CAD (coronary artery disease) Code(s): I25.10 - ATHSCL HEART DISEASE OF [place] CORONARY ARTERY W/O ANG PCTRS Status: Chronic Comment: Recent OP Cath. cont home meds ASA, plavix,Coreg, lasix and aldactone (9) HTN (hypertension) Code(s): I10 - ESSENTIAL (PRIMARY) HYPERTENSION Status: Chronic Comment: Controlled (10) Peripheral vascular disease Code(s): I73.9 - PERIPHERAL VASCULAR DISEASE, UNSPECIFIED Status: Chronic Comment: Continue ASA/Plavix (11) Physical deconditioning Code(s): R53.81 - OTHER MALAISE Status: Chronic Comment: PT for functional assessment (12) MOSHE (obstructive sleep apnea) Code(s): G47.33 - OBSTRUCTIVE SLEEP APNEA (ADULT) (PEDIATRIC) Status: Acute Comment: Suspected due to nocturnal desatiration - Plan Given new onset tachycardia, hypoxia and worsening tachycardia, aspiration is a concern We will get repeat CXR. We will also get MBS. case discussed with patient daughter at bedside, Nursing staff and speech therapist. We will also decrease lasix dose given increase in creat. We willre evaluate patient when ordered test are available. Continue oxygen supplementation as needed. * .
--- NOTE | 2018-12-06 12:49 | RAD ---
TWO VIEW CHEST: INDICATION: Leukocytosis. Shortness of breath. Hospital followup. COMPARISON: 12/01/2018. FINDINGS: Cardiomegaly. Mild vascular congestion and interstitial prominence. Hazy alveolar opacity in the ri ght upper lung again noted suggesting asymmetric edema or infiltrate. Evidence of small bilateral ef fusions. IMPRESSION: The above chest findings have not significantly changed when compared to 12/01/2018. POS: [facility]
--- NOTE | 2018-12-06 14:43 | RAD ---
MODIFIED BARIUM SWALLOW: HISTORY: Dysphagia, R13.10. Feeding difficulties, R63.3. TECHNIQUE/FINDINGS: Various consistencies of barium sulfate were given to the patient. The patient had large gulps. The patient was asked repeatedly to take smaller swallows; however, each time he was allowed to swallow freely, he took large gulps, which resulted in some minimal flash penetration. When the patient had smaller gulps and nectar thick liquid was used, no evidence of aspi ration or penetration seen. This also improved with patient having a chin tuck position during the swallowing process. IMPRESSION: Patient had a tendency to have some flash penetration with large gulps of thin liquid. This resolved, however, with smaller gulps being ingested as well as thickening of the liquid. Other consistencies of ingested barium did not result in aspiration. Transcribed Date/Time: 12/06/2018 3:05 PM
[2018-12-06] MEDS ORDERED: Sodium Chloride 0.9% 500 ML IV SCH (14:45)
[2018-12-07 09:33] LABS: #Eosinphils 0.5 thou/uL (0.0-0.7); #Lymphocytes 1.5 thou/uL (1.20-3.40); #Monocytes 1.3 thou/uL (0.11-0.59); #Neutrophils 11.3 thou/uL (1.40-6.50); %Basophils 0.3 % (0.0-1.0); %Eosinophils 3.3 % (0.0-10.0); %Lymphocytes 10.2 % (21.0-51.0); %Monocytes 8.9 % (0.0-10.0); %Neutrophils 77.4 % (42.0-75.0); Hemoglobin 11.9 g/dL (14.0-18.0); Mean Corpuscular Volume 93.9 fL (78.0-98.0); Mean Platelet Volume 7.5 fL (7.4-10.4); Platelet Count 306 thou/uL (130-400); RBC Distribution Width 11.8 % (11.5-14.5); Red Blood Cell (RBC) Count 3.85 mill/uL (4.70-6.10); White Blood Cell (WBC) Count 14.6 thou/uL (4.8-10.8)
[2018-12-07 09:57] LABS: Anion Gap 17 mmol/L (10-20); BUN (Urea Nitrogen) 43 mg/dL (8.4-25.7); Calc. Creatinine Clearance 60 mL/min (70-130); Calcium 9.6 mg/dL (7.8-10.44); Carbon Dioxide 27 mmol/L (23-31); Chloride 98 mmol/L (98-107); Estimated GFR-MDRD 40; Glucose 217 mg/dL (83-110); Potassium 4.2 mmol/L (3.5-5.1); Sodium 138 mmol/L (136-145)
[2018-12-07] MEDS: Furosemide 40 MG TAB PO SCH (10:03)
[2018-12-07] MEDS: Citalopram 20 MG TAB PO SCH (10:03)
[2018-12-07] MEDS: Carvedilol 6.25 MG TAB PO SCH ×2 (10:04→21:02)
[2018-12-07] MEDS: Amoxicillin/Potassium Clav 875 MG TAB PO SCH ×2 (10:04→21:02)
[2018-12-07] MEDS: Niacin 500 MG TAB PO SCH (10:04)
[2018-12-07] MEDS: Doxycycline 100 MG CAP PO SCH ×2 (10:22→21:02)
[2018-12-07] MEDS: Spironolactone 25 MG TAB PO SCH ×2 (10:22→17:00)
[2018-12-07] MEDS: Aspirin 81 mg Enteric Coated Tablet PO SCH ×2 (10:23→10:24)
[2018-12-07] MEDS: Enoxaparin Sodium 40 MG/0.4 ML SYRINGE SC SCH (10:23)
[2018-12-07] MEDS: Clopidogrel Bisulfate 75 MG TAB PO SCH (10:23)
[2018-12-07] MEDS ORDERED: Aspirin Chewable 81 MG TAB PO SCH (10:30)
[2018-12-07] MEDS: glipiZIDE 10 MG TAB PO SCH (10:43)
--- NOTE | 2018-12-07 18:08 | PDOC.PN ---
- Subjective Encounter Start Date: 12/07/18 Encounter Start Time: 18:06 Subjective: Seen and examined. -: Feeling better. -: Still requiring oxygen. Hypotension resolbved with NS 500 mls bolus. - Objective Resuscitation Status - Order Detail: 12/01/18 11:52 Resuscitation Status Routine Resuscitation Status: DNAR: NO Resuscitation Discussed with: Son Tony Brother Vital Signs & Weight: Vital Signs (12 hours) Temp Pulse Pulse Pulse Resp BP BP 12/07/18 16:00 97.5 F L 99 18 12/07/18 12:00 98 F 91 16 12/07/18 09:15 95 95 124/80 109/61 12/07/18 08:00 12/07/18 07:58 98.4 F 98 18 BP Pulse Ox Pulse Ox Pulse Ox 12/07/18 16:00 109/64 95 12/07/18 12:00 114/71 96 12/07/18 09:15 96 94 L 12/07/18 08:00 96 12/07/18 07:58 107/75 98 Weight Weight 246 lb I&O: 12/06/18 12/07/18 12/08/18 06:59 06:59 06:59 Intake Total 1170 1320 Balance 1170 1320 Result Diagrams: 12/07/18 09:25 12/07/18 09:25 Additional Labs: Accuchecks 12/07/18 12/07/18 12/07/18 17:27 11:25 05:30 POC Glucose 207 H 227 H 237 H 12/06/18 20:34 POC Glucose 218 H Phys Exam - Physical Examination Constitutional: NAD afebrile HEENT: moist MMs Neck: no JVD, supple fair air entry with some transmitted sound. Cardiovascular: RRR Gastrointestinal: soft, non-tender, no distention, positive bowel sounds Musculoskeletal: no edema, pulses present conscious and alert. Moving all lims. Power of lower limbs are decreased Psychiatric: A&O x 3 Dx/Plan (1) Acute respiratory failure with hypoxia Code(s): J96.01 - ACUTE RESPIRATORY FAILURE WITH HYPOXIA Status: Acute Comment: Still on oxygen. Was weaned earler but developed acute distress thought to related to aspiration. (2) CKD (chronic kidney disease) stage 3, GFR 30-59 ml/min Code(s): N18.3 - CHRONIC KIDNEY DISEASE, STAGE 3 (MODERATE) Status: Chronic Comment: stable (3) Dysphagia causing pulmonary aspiration with swallowing Code(s): R13.19 - OTHER DYSPHAGIA Status: Acute (4) PNA (pneumonia) Code(s): J18.9 - PNEUMONIA, UNSPECIFIED ORGANISM Status: Acute Qualifiers: Aspiration pneumonia type: unspecified Comment: on oral antibiotics (5) Sepsis Code(s): A41.9 - SEPSIS, UNSPECIFIED ORGANISM Status: Acute Comment: Cx negative so far. on empiric ABx. Monitor. Improving (6) Type 2 myocardial infarction Code(s): I21.A1 - MYOCARDIAL INFARCTION TYPE 2 Status: Acute Comment: stable (7) Aortic stenosis Code(s): I35.0 - NONRHEUMATIC AORTIC (VALVE) STENOSIS Status: Chronic (8) CAD (coronary artery disease) Code(s): I25.10 - ATHSCL HEART DISEASE OF [place] CORONARY ARTERY W/O ANG PCTRS Status: Chronic Comment: Recent OP Cath. cont home meds ASA, plavix,Coreg, lasix and aldactone (9) HTN (hypertension) Code(s): I10 - ESSENTIAL (PRIMARY) HYPERTENSION Status: Chronic Comment: Controlled (10) Peripheral vascular disease Code(s): I73.9 - PERIPHERAL VASCULAR DISEASE, UNSPECIFIED Status: Chronic Comment: Continue ASA/Plavix (11) Physical deconditioning Code(s): R53.81 - OTHER MALAISE Status: Chronic Comment: PT for functional assessment (12) MOSHE (obstructive sleep apnea) Code(s): G47.33 - OBSTRUCTIVE SLEEP APNEA (ADULT) (PEDIATRIC) Status: Acute Comment: Suspected due to nocturnal desatiration (13) Aspiration pneumonia Code(s): J69.0 - PNEUMONITIS DUE TO INHALATION OF FOOD AND VOMIT Status: Acute (14) Hypotension Status: Acute Comment: Resolved. thought to be SIRS due to aspiration - Plan Continue current mgt -: Following discussion with palliative care, patient to talk with hospice -: Continue oxygen supplementation. -: Continue dysphagic diet for now. * .
[2018-12-08 05:41] LABS: #Eosinphils 0.5 thou/uL (0.0-0.7); #Lymphocytes 1.7 thou/uL (1.20-3.40); #Monocytes 1.2 thou/uL (0.11-0.59); #Neutrophils 10.7 thou/uL (1.40-6.50); %Basophils 0.4 % (0.0-1.0); %Eosinophils 3.2 % (0.0-10.0); %Monocytes 8.3 % (0.0-10.0); %Neutrophils 76.1 % (42.0-75.0); Hemoglobin 11.7 g/dL (14.0-18.0); Mean Corpuscular HGB CONC 32.8 g/dL (32.0-36.0); Mean Corpuscular Hemoglobin 30.6 pg (27.0-31.0); Mean Corpuscular Volume 93.5 fL (78.0-98.0); Mean Platelet Volume 7.4 fL (7.4-10.4); Platelet Count 311 thou/uL (130-400); RBC Distribution Width 11.9 % (11.5-14.5); Red Blood Cell (RBC) Count 3.81 mill/uL (4.70-6.10); White Blood Cell (WBC) Count 14.1 thou/uL (4.8-10.8)
[2018-12-08 06:03] LABS: Anion Gap 16 mmol/L (10-20); BUN (Urea Nitrogen) 42 mg/dL (8.4-25.7); Calc. Creatinine Clearance 70 mL/min (70-130); Calcium 9.8 mg/dL (7.8-10.44); Carbon Dioxide 26 mmol/L (23-31); Chloride 99 mmol/L (98-107); Estimated GFR-MDRD 48; Glucose 231 mg/dL (83-110); Potassium 4.2 mmol/L (3.5-5.1); Sodium 137 mmol/L (136-145)
[2018-12-08] MEDS: Doxycycline 100 MG CAP PO SCH ×2 (10:03→20:38)
[2018-12-08] MEDS: Amoxicillin/Potassium Clav 875 MG TAB PO SCH ×2 (10:03→20:38)
[2018-12-08] MEDS: Citalopram 20 MG TAB PO SCH (10:04)
[2018-12-08] MEDS: Niacin 500 MG TAB PO SCH (10:04)
[2018-12-08] MEDS: glipiZIDE 10 MG TAB PO SCH ×2 (10:04→10:29)
[2018-12-08] MEDS: Aspirin Chewable 81 MG TAB PO SCH (10:04)
[2018-12-08] MEDS: Carvedilol 6.25 MG TAB PO SCH ×2 (10:05→20:38)
[2018-12-08] MEDS: Clopidogrel Bisulfate 75 MG TAB PO SCH (10:05)
[2018-12-08] MEDS: Furosemide 40 MG TAB PO SCH (10:05)
[2018-12-08] MEDS: Spironolactone 25 MG TAB PO SCH ×2 (10:07→16:37)
[2018-12-08] MEDS: Enoxaparin Sodium 40 MG/0.4 ML SYRINGE SC SCH (10:07)
[2018-12-08] MEDS: HumaLOG 300 UNITS/3 ML VIAL SC PRN ×2 (12:38→17:38)
--- NOTE | 2018-12-08 17:19 | PDOC.PN ---
- Subjective Encounter Start Date: 12/08/18 Encounter Start Time: 10:17 Subjective: More alert and comfortable today. -: Took off oxygen as it is bordering. -: Still doesnt like the dysphagia diet but taking more of it. - Objective Resuscitation Status - Order Detail: 12/01/18 11:52 Resuscitation Status Routine Resuscitation Status: DNAR: NO Resuscitation Discussed with: Son Tony Brothpatria Vital Signs & Weight: Vital Signs (12 hours) Temp Pulse Pulse Pulse Pulse Resp BP 12/08/18 16:00 97.4 F L 99 16 12/08/18 14:20 85 92 12/08/18 13:30 97 88 97 12/08/18 12:00 97.3 F L 98 16 12/08/18 10:05 109/59 L 12/08/18 08:00 98.1 F 78 16 12/08/18 07:32 BP BP BP BP Pulse Ox Pulse Ox Pulse Ox 12/08/18 16:00 119/71 96 12/08/18 14:20 93/66 103/58 L 94 L 93 L 12/08/18 13:30 87/56 L 147/71 H 92/60 95 99 12/08/18 12:00 109/59 L 96 12/08/18 10:05 12/08/18 08:00 119/75 95 12/08/18 07:32 93 L Pulse Ox 12/08/18 16:00 12/08/18 14:20 12/08/18 13:30 95 12/08/18 12:00 12/08/18 10:05 12/08/18 08:00 12/08/18 07:32 Weight Weight 244 lb 3 oz I&O: 12/07/18 12/08/18 12/09/18 06:59 06:59 06:59 Intake Total 1320 450 600 Balance 1320 450 600 Result Diagrams: 12/08/18 05:19 12/08/18 05:19 Additional Labs: Accuchecks 12/08/18 12/08/18 12/08/18 16:34 10:27 05:52 POC Glucose 162 H 271 H 230 H 12/07/18 12/07/18 21:00 17:27 POC Glucose 206 H 207 H Phys Exam - Physical Examination Constitutional: NAD afebrile HEENT: moist MMs Neck: supple Respiratory: no wheezing, no rhonchi fair air entry bilaterally with some transmitted sound. Cardiovascular: RRR systolic murmur noted Gastrointestinal: soft, non-tender, positive bowel sounds obese Musculoskeletal: no edema, pulses present awake and conversational. Moving all limbs but lower limbs weakly Psychiatric: A&O x 3 Dx/Plan (1) Acute respiratory failure with hypoxia Code(s): J96.01 - ACUTE RESPIRATORY FAILURE WITH HYPOXIA Status: Acute Comment: Improved. currently off oxygen (2) CKD (chronic kidney disease) stage 3, GFR 30-59 ml/min Code(s): N18.3 - CHRONIC KIDNEY DISEASE, STAGE 3 (MODERATE) Status: Chronic Comment: stable (3) Dysphagia causing pulmonary aspiration with swallowing Code(s): R13.19 - OTHER DYSPHAGIA Status: Acute (4) PNA (pneumonia) Code(s): J18.9 - PNEUMONIA, UNSPECIFIED ORGANISM Status: Acute Qualifiers: Aspiration pneumonia type: unspecified Comment: on oral antibiotics (5) Sepsis Code(s): A41.9 - SEPSIS, UNSPECIFIED ORGANISM Status: Acute Comment: Cx negative so far. Improved. (6) Type 2 myocardial infarction Code(s): I21.A1 - MYOCARDIAL INFARCTION TYPE 2 Status: Acute Comment: stable (7) Aortic stenosis Code(s): I35.0 - NONRHEUMATIC AORTIC (VALVE) STENOSIS Status: Chronic (8) CAD (coronary artery disease) Code(s): I25.10 - ATHSCL HEART DISEASE OF [place] CORONARY ARTERY W/O ANG PCTRS Status: Chronic Comment: Recent OP Cath. cont home meds ASA, plavix,Coreg, lasix and aldactone (9) HTN (hypertension) Code(s): I10 - ESSENTIAL (PRIMARY) HYPERTENSION Status: Chronic Comment: Controlled (10) Peripheral vascular disease Code(s): I73.9 - PERIPHERAL VASCULAR DISEASE, UNSPECIFIED Status: Chronic Comment: Continue ASA/Plavix (11) Physical deconditioning Code(s): R53.81 - OTHER MALAISE Status: Chronic Comment: PT for functional assessment (12) MOSHE (obstructive sleep apnea) Code(s): G47.33 - OBSTRUCTIVE SLEEP APNEA (ADULT) (PEDIATRIC) Status: Acute Comment: Suspected due to nocturnal desatiration (13) Aspiration pneumonia Code(s): J69.0 - PNEUMONITIS DUE TO INHALATION OF FOOD AND VOMIT Status: Acute (14) Hypotension Status: Acute Comment: Resolved. thought to be due to SIRS from aspiration - Plan Discussed with patient and relatives. -: Desire to proceed with hospice. -: Daughter will however want patient here in [place] relatives are here -: Discussed with case mgt. -: Continue current treatments for now. * .
[2018-12-09] MEDS: Citalopram 20 MG TAB PO SCH ×2 (09:18→09:25)
[2018-12-09] MEDS: Amoxicillin/Potassium Clav 875 MG TAB PO SCH ×2 (09:18→20:30)
[2018-12-09] MEDS: Furosemide 40 MG TAB PO SCH (09:18)
[2018-12-09] MEDS: Carvedilol 6.25 MG TAB PO SCH (09:18)
[2018-12-09] MEDS: Doxycycline 100 MG CAP PO SCH ×2 (09:18→20:30)
[2018-12-09] MEDS: glipiZIDE 10 MG TAB PO SCH (09:18)
[2018-12-09] MEDS: Spironolactone 25 MG TAB PO SCH ×2 (09:19→17:09)
[2018-12-09] MEDS: Niacin 500 MG TAB PO SCH (09:19)
[2018-12-09] MEDS: Clopidogrel Bisulfate 75 MG TAB PO SCH (09:19)
[2018-12-09] MEDS: Enoxaparin Sodium 40 MG/0.4 ML SYRINGE SC SCH (09:19)
[2018-12-09] MEDS: Aspirin Chewable 81 MG TAB PO SCH (09:19)
[2018-12-09 12:19] VITALS: BMI 31.2
--- NOTE | 2018-12-09 16:41 | PDOC.PN ---
- Subjective Encounter Start Date: 12/09/18 Encounter Start Time: 09:40 Subjective: No new problem -: Elected to proceed with hospice care. - Objective Resuscitation Status - Order Detail: 12/01/18 11:52 Resuscitation Status Routine Resuscitation Status: DNAR: NO Resuscitation Discussed with: Marcell Jimenez Brother Vital Signs & Weight: Vital Signs (12 hours) Temp Pulse Pulse Pulse Resp BP BP 12/09/18 14:38 85 77 100/59 L 96/61 12/09/18 08:00 97.7 F 78 17 BP Pulse Ox Pulse Ox Pulse Ox 12/09/18 14:38 96 95 12/09/18 08:00 113/58 L 98 Weight Admit Weight 257 lb Weight 243 lb 9 oz I&O: 12/08/18 12/09/18 12/10/18 06:59 06:59 06:59 Intake Total 450 840 Balance 450 840 Result Diagrams: 12/08/18 05:19 12/08/18 05:19 Additional Labs: Accuchecks 12/09/18 12/09/18 12/08/18 10:58 05:36 20:17 POC Glucose 205 H 187 H 231 H 12/08/18 16:34 POC Glucose 162 H Phys Exam - Physical Examination Constitutional: NAD HEENT: moist MMs Neck: no JVD, supple Respiratory: no rales fair air entry bilaterally with some transmitted sound Cardiovascular: RRR Gastrointestinal: soft, non-tender, no distention, positive bowel sounds Musculoskeletal: no edema, pulses present conscious and alert. moving all limbs Psychiatric: A&O x 3 Dx/Plan (1) Acute respiratory failure with hypoxia Code(s): J96.01 - ACUTE RESPIRATORY FAILURE WITH HYPOXIA Status: Acute Comment: Improved. currently off oxygen (2) CKD (chronic kidney disease) stage 3, GFR 30-59 ml/min Code(s): N18.3 - CHRONIC KIDNEY DISEASE, STAGE 3 (MODERATE) Status: Chronic Comment: stable (3) Dysphagia causing pulmonary aspiration with swallowing Code(s): R13.19 - OTHER DYSPHAGIA Status: Acute (4) PNA (pneumonia) Code(s): J18.9 - PNEUMONIA, UNSPECIFIED ORGANISM Status: Acute Qualifiers: Aspiration pneumonia type: unspecified Comment: on oral antibiotics (5) Sepsis Code(s): A41.9 - SEPSIS, UNSPECIFIED ORGANISM Status: Acute Comment: Cx negative so far. Improved. (6) Type 2 myocardial infarction Code(s): I21.A1 - MYOCARDIAL INFARCTION TYPE 2 Status: Acute Comment: stable (7) Aortic stenosis Code(s): I35.0 - NONRHEUMATIC AORTIC (VALVE) STENOSIS Status: Chronic (8) CAD (coronary artery disease) Code(s): I25.10 - ATHSCL HEART DISEASE OF [place] CORONARY ARTERY W/O ANG PCTRS Status: Chronic Comment: Recent OP Cath. cont home meds ASA, plavix,Coreg, lasix and aldactone (9) HTN (hypertension) Code(s): I10 - ESSENTIAL (PRIMARY) HYPERTENSION Status: Chronic Comment: Controlled (10) Peripheral vascular disease Code(s): I73.9 - PERIPHERAL VASCULAR DISEASE, UNSPECIFIED Status: Chronic Comment: Continue ASA/Plavix (11) Physical deconditioning Code(s): R53.81 - OTHER MALAISE Status: Chronic Comment: PT for functional assessment (12) MOSHE (obstructive sleep apnea) Code(s): G47.33 - OBSTRUCTIVE SLEEP APNEA (ADULT) (PEDIATRIC) Status: Acute Comment: Suspected due to nocturnal desatiration (13) Aspiration pneumonia Code(s): J69.0 - PNEUMONITIS DUE TO INHALATION OF FOOD AND VOMIT Status: Acute (14) Hypotension Status: Acute Comment: Resolved. thought to be due to SIRS from aspiration - Plan Continue current treatments -: Oxygen as needed -: Awaiting group home/hospice placement * .
[2018-12-09] MEDS: Carvedilol 3.125 MG TAB PO SCH (20:30)
[2018-12-09] MEDS ORDERED: Citalopram 20 MG TAB PO SCH (21:00)
--- NOTE | 2018-12-10 08:07 | PDOC.PN ---
- Subjective Encounter Start Date: 12/10/18 Encounter Start Time: 08:06 Subjective: No new problem -: Awaiting placement - Objective Resuscitation Status - Order Detail: 12/01/18 11:52 Resuscitation Status Routine Resuscitation Status: DNAR: NO Resuscitation Discussed with: Brother Castillo Vital Signs & Weight: Vital Signs (12 hours) Temp Pulse Resp BP Pulse Ox 12/10/18 07:58 98.0 F 86 18 125/75 95 12/10/18 02:52 100.1 F H 96 20 131/65 95 12/09/18 23:42 97.7 F 82 20 115/65 94 L Weight Admit Weight 257 lb Weight 245 lb I&O: 12/09/18 12/10/18 12/11/18 06:59 06:59 06:59 Intake Total 840 680 Balance 840 680 Result Diagrams: 12/08/18 05:19 12/08/18 05:19 Additional Labs: Accuchecks 12/10/18 12/09/18 12/09/18 05:25 16:42 10:58 POC Glucose 159 H 168 H 205 H Phys Exam - Physical Examination Constitutional: NAD HEENT: moist MMs Neck: supple fair air entry with some transmitted sound Cardiovascular: RRR Gastrointestinal: soft, non-tender, no distention, positive bowel sounds Musculoskeletal: no edema, pulses present conscious and alert,oriented x3.Moving all limbs Dx/Plan (1) Acute respiratory failure with hypoxia Code(s): J96.01 - ACUTE RESPIRATORY FAILURE WITH HYPOXIA Status: Acute Comment: Improved. currently off oxygen (2) CKD (chronic kidney disease) stage 3, GFR 30-59 ml/min Code(s): N18.3 - CHRONIC KIDNEY DISEASE, STAGE 3 (MODERATE) Status: Chronic Comment: stable (3) Dysphagia causing pulmonary aspiration with swallowing Code(s): R13.19 - OTHER DYSPHAGIA Status: Acute (4) PNA (pneumonia) Code(s): J18.9 - PNEUMONIA, UNSPECIFIED ORGANISM Status: Acute Qualifiers: Aspiration pneumonia type: unspecified Comment: on oral antibiotics (5) Sepsis Code(s): A41.9 - SEPSIS, UNSPECIFIED ORGANISM Status: Acute Comment: Cx negative so far. Improved. (6) Type 2 myocardial infarction Code(s): I21.A1 - MYOCARDIAL INFARCTION TYPE 2 Status: Acute Comment: stable (7) Aortic stenosis Code(s): I35.0 - NONRHEUMATIC AORTIC (VALVE) STENOSIS Status: Chronic (8) CAD (coronary artery disease) Code(s): I25.10 - ATHSCL HEART DISEASE OF [place] CORONARY ARTERY W/O ANG PCTRS Status: Chronic Comment: Recent OP Cath. cont home meds ASA, plavix,Coreg, lasix and aldactone (9) HTN (hypertension) Code(s): I10 - ESSENTIAL (PRIMARY) HYPERTENSION Status: Chronic Comment: Controlled (10) Peripheral vascular disease Code(s): I73.9 - PERIPHERAL VASCULAR DISEASE, UNSPECIFIED Status: Chronic Comment: Continue ASA/Plavix (11) Physical deconditioning Code(s): R53.81 - OTHER MALAISE Status: Chronic Comment: PT for functional assessment (12) MOSHE (obstructive sleep apnea) Code(s): G47.33 - OBSTRUCTIVE SLEEP APNEA (ADULT) (PEDIATRIC) Status: Acute Comment: Suspected due to nocturnal desatiration (13) Aspiration pneumonia Code(s): J69.0 - PNEUMONITIS DUE TO INHALATION OF FOOD AND VOMIT Status: Acute (14) Hypotension Status: Acute Comment: Resolved. thought to be due to SIRS from aspiration - Plan Continue current treatments. -: Awaiting placement to fdc with hospice. * .
[2018-12-10] MEDS ORDERED: Furosemide 40 MG TAB PO SCH (09:00)
[2018-12-10 09:23] LABS: Anion Gap 15 mmol/L (10-20); BUN (Urea Nitrogen) 32 mg/dL (8.4-25.7); Calc. Creatinine Clearance 81 mL/min (70-130); Calcium 9.7 mg/dL (7.8-10.44); Carbon Dioxide 29 mmol/L (23-31); Chloride 101 mmol/L (98-107); Estimated GFR-MDRD 57; Glucose 144 mg/dL (83-110); Potassium 3.8 mmol/L (3.5-5.1); Sodium 141 mmol/L (136-145)
[2018-12-10] MEDS: glipiZIDE 10 MG TAB PO SCH (10:13)
[2018-12-10] MEDS: Clopidogrel Bisulfate 75 MG TAB PO SCH (10:14)
[2018-12-10] MEDS: Enoxaparin Sodium 40 MG/0.4 ML SYRINGE SC SCH (10:14)
[2018-12-10] MEDS: Aspirin Chewable 81 MG TAB PO SCH (10:14)
[2018-12-10] MEDS: Carvedilol 3.125 MG TAB PO SCH (10:14)
[2018-12-10] MEDS: Spironolactone 25 MG TAB PO SCH (10:14)
[2018-12-10] MEDS: Doxycycline 100 MG CAP PO SCH (10:14)
[2018-12-10 13:47] VITALS: TEMP 97.9
[2018-12-10] MEDS: Amoxicillin/Potassium Clav 875 MG TAB PO SCH (13:49)
[2018-12-10] MEDS: HumaLOG 300 UNITS/3 ML VIAL SC PRN (14:44)
[2018-12-10 15:24] VITALS: BP 118/72
--- NOTE | 2018-12-13 07:25 | DIS ---
DATE OF ADMISSION: 11/29/2018 DATE OF DISCHARGE: 12/10/2018 PRIMARY CARE PHYSICIAN: Ted Gay MD DISCHARGE DIAGNOSES: 1. Acute respiratory failure with hypoxia. 2. Acute on chronic diastolic heart failure. 3. Type 2 myocardial infarction. 4. Severe aortic stenosis. 5. Hypertension. 6. Hypotension. 7. Recurrent aspiration. 8. Aspiration pneumonitis. 9. Pneumonia. 10. Obstructive sleep apnea suspected. 11. Peripheral vascular disease. 12. Peripheral neuropathy. 13. Coronary artery disease. 14. Sepsis. 15. Dysphagia causing pulmonary aspiration with swallowing. 16. Chronic kidney disease, stage 3. 17. Obesity. 18. Physical deconditioning. CONSULTS: 1. Cardiology. 2. Palliative Care. DISCHARGE DISPOSITION: assisted with hospice. DISCHARGE MEDICATIONS: 1. Tramadol 50 mg q.8 h. p.r.n. for pain. 2. Aspirin 81 mg p.o. daily. 3. Plavix 75 mg p.o. daily. 4. Vitamin B12 of 1000 mcg p.o. daily. 5. Magnesium oxide 400 mg p.o. daily. 6. Niacin 1000 mg p.o. daily. 7. [place]-3 fatty acids 1000 mg p.o. daily. 8. Simvastatin 20 mg p.o. daily at bedtime. 9. Spironolactone 25 mg p.o. b.i.d. 10. Tamsulosin 0.4 mg p.o. daily. 11. Acetaminophen 650 mg q.4 p.r.n. for pain. 12. Dulcolax suppository 10 mg per rectum daily p.r.n. for constipation. 13. Carvedilol 3.125 mg p.o. b.i.d. 14. Citalopram 20 mg p.o. daily at bedtime. 15. Furosemide 40 mg p.o. daily. 16. Glipizide 10 mg p.o. daily. 17. Ondansetron ODT 4 mg q.6 p.r.n. for nausea and vomiting. 18. MiraLAX 17 g p.o. b.i.d. p.r.n. for constipation. HOSPITAL COURSE: A 73-year-old male, who was admitted from [facility] for further evaluation and treatment of sore throat, generalized weakness, as well as cough and hypoxia. The patient was recently seen at [facility] for chest pain and was evaluated with cardiac angiogram, following which he was discharged to a custodial facility from where he was presented to [facility]. The patient was noted to have injected pharynx with some swelling, but flu screen and strep test were negative. He; however, was found to have leukocytosis as well as fever and also have hypoxia with SpO2 less than 90. Impression of acute respiratory failure and pneumonia with sepsis was made and the patient was started on broad-spectrum antibiotics and admitted for further evaluation. The patient also was found to have elevated troponin. Cardiology consult was obtained and this was felt to be type 2 non-ST elevation myocardial infarction and conservative management was recommended. The patient was treated with antibiotics as well as diuretics for acute on chronic diastolic heart failure with improvement. The patient also had echocardiogram, which showed preserved systolic function with EF of 50% to 55%. He; however, was found to have severe aortic stenosis. With treatment, the patient improved and was weaned off oxygen. However, he suddenly developed hypotension and respiratory distress requiring oxygen supplementation again. It was felt that the patient may be having dysphagia and aspiration and further evaluation by Speech was consistent and he subsequently have modified barium swallow, which showed the patient was aspirating all consistencies of liquid and solid except pureed and nectar thickened liquids. Diet was changed, but the patient was not particularly happy about the dysphagic diet. Even the dysphagic diet is associated with aspiration. At this point, discussion was had with the patient and family about care options and goals. Following extensive discussion and consultation, the patient and family elected to proceed with hospice. The patient was subsequently discharged to a halfway with hospice following conclusion of arrangements. CONDITION AT DISCHARGE: Stable. TIME SPENT: This discharge took more than 40 minutes. Job ID: [id number]
== END 2018-12-10 16:35 | disposition hospice, inpatient (51) | DRG 871 ==
LOC: ERS 20:39 → ERHOLD 22:43 → 2NO 11-30 13:34
PROVIDERS: ADMIT Internal Medicine; ATTEND Internal Medicine
DX: A41.9 Sepsis, unspecified organism (principal); J69.0 Pneumonitis due to inhalation of food and vomit; J96.01 Acute respiratory failure with hypoxia; I21.A1 Myocardial infarction type 2; I13.0 Hypertensive heart and chronic kidney disease with heart failure and stage 1 through stage 4 chronic kidney disease, or unspecified chronic kidney disease; N39.0 Urinary tract infection, site not specified; I50.32 Chronic diastolic (congestive) heart failure; Z66 Do not resuscitate; E78.5 Hyperlipidemia, unspecified; E11.22 Type 2 diabetes mellitus with diabetic chronic kidney disease; I25.10 Atherosclerotic heart disease of native coronary artery without angina pectoris; F20.9 Schizophrenia, unspecified; N18.3 Chronic kidney disease, stage 3 (moderate); I35.0 Nonrheumatic aortic (valve) stenosis; R13.10 Dysphagia, unspecified; G47.33 Obstructive sleep apnea (adult) (pediatric); Z79.84 Long term (current) use of oral hypoglycemic drugs; Z99.3 Dependence on wheelchair; Z86.73 Personal history of transient ischemic attack (TIA), and cerebral infarction without residual deficits; Z87.891 Personal history of nicotine dependence; Z86.79 Personal history of other diseases of the circulatory system; Z79.82 Long term (current) use of aspirin; Z79.899 Other long term (current) drug therapy
CPT/HCPCS: 36415; 36416; 70450; 71046; 74230; 80048; 80202; 82553; 82805; 83605; 83880; 84145; 84484; 85025; 93005; 93010; 93306; 94660; 96360; 96361; 96372; J0692; J1650; J1940; J1956; J3370; J3490; J7050; Q0162